=== PATIENT | male | born 1980 | race Caucasian/White ===

== ENCOUNTER 2018-09-07 11:01 | Inpatient (IN) | payer OTHER ==
[2018-09-07 11:28] VITALS: BMI 23.3
--- NOTE | 2018-09-07 13:06 | HP ---
"CIWA Score Nausea/Vomitin-Int. Nausea w/Dry Heave Muscle Tremors: 4-Moderate,w/Arms Extend Anxiety: 4-Mod. Anxious/Guarded Agitation: 1-Slight > Activity Paroxysmal Sweats: No Perspiration Orientation: 0-Oriented Tacttile Disturbances: 0-None Auditory Disturbances: 0-None Visual Disturbances: 1-Very Mild Sensitivity Headache: 0-None Present CIWA-Ar Total Score: 14 - Admission Criteria OASAS Guidelines: Admission for Medically Managed Detox: Requires at least one of the followin. CIWA greater than 12 2. Seizures within the past 24 hours 3. Delirium tremens within the past 24 hours 4. Hallucinations within the past 24 hours 5. Acute intervention needed for co occurring medical disorder 6. Acute intervention needed for co occurring psychiatric disorder 7. Severe withdrawal that cannot be handled at a lower level of care (continued vomiting, continued diarrhea, abnormal vital signs) requiring intravenous medication and/or fluids 8. 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 Denies driving . Latest use today manuela 0.138 , went to [facility] today , referred to this facility . PMHx : denies PSHx : left knee ACL , r knee meniscual tear, discectomy C4 , Laminectomy L- spine Sep 2017 , RTC right - sports injuries PSych hx : denies utox + thc cannabis : 3 /d tobacco : 1/2 ppd This report was requested by: Carolynn Espinal | Reference #: [id number] Others' Prescriptions Patient Name: Guillermo Egan Date: 1980 Address: [address] [place] [address] Sex: Male Rx Written Rx Dispensed Drug Quantity Days Supply Prescriber Name 02/23/2018 03/10/2018 clonazepam 0.5 mg tablet 60 30 Wesley Tinoco MD 02/02/2018 02/03/2018 clonazepam 0.5 mg tablet 30 30 Wesley Tinoco MD 11/18/2017 11/21/2017 clonazepam 0.5 mg tablet 30 30 Wesley Tinoco MD 10/14/2017 10/15/2017 clonazepam 0.5 mg tablet 30 30 Wesley Tinoco MD 09/16/2017 09/17/2017 oxycodone-acetaminophen 5-325 mg tab 40 6 Luis E Singh Exam Limitations: Clinical Condition - Ebola screening Have you traveled outside of the country in the last 21 days: No Have you had contact with anyone from an Ebola affected area: No Have you been sick,other than usual withdrawal symptoms: No Do you have a fever: No - Review of Systems Constitutional: See HPI EENT: reports: Other (denies dysphagia , denies vision changes) Respiratory: reports: No Symptoms reported Cardiac: reports: No Symptoms Reported GI: reports: See HPI : reports: No Symptoms Reported Musculoskeletal: reports: No Symptoms Reported Integumentary: reports: No Symptoms Reported Neuro: reports: Seizure Endocrine: reports: No Symptoms Reported Psychiatric: reports: Orientated x3, Agitated, Anxious Patient History - Patient Medical History Hx Asthma: No Hx Chronic Obstructive Pulmonary Disease (COPD): No Hx Cardiac Disorders: No Hx Hypertension: No Hx Seizures: Yes (etoh related last 07/11 pt is on klonopin) Hx Diabetes: No Hx Gastrointestinal Disorders: No Hx Genitourinary Disorders: No Hx Sexually Transmitted Disorders: No Hx Renal Disease (ESRD): No Hx Depression: Yes Hx Suicide Attempt: No Hx Schizophrenia: No - Patient Surgical History Past Surgical History: Yes Hx Orthopedic Surgery: Yes (R knee meniscus repair R acl repair) Other Surgical History: laminectomy R rotator cuff repair - PPD History Previous Implant?: Yes Documented Results: Negative w/o proof Implanted On Prior R Admission?: No - Smoking Cessation Smoking history: Current every day smoker Have you smoked in the past 12 months: Yes Aproximately how many cigarettes per day: 10 Hx Chewing Tobacco Use: No Initiated information on smoking cessation: No - Substances Abused Alcohol Route: Oral Frequency: Daily Amount used: 1 pint vodka Age of first use: 15 Date of Last Use: 09/07/18 Marijuana/Hashish Route: Smoking Frequency: Daily Amount used: 3 cigars Age of first use: 15 Date of Last Use: 09/06/18 Family Disease History - Family Disease History Family Disease History: Other: Father (lymphoma in remission) Admission Physical Exam S - Vital Signs Vital Signs: Vital Signs - 24 hr 09/07/18 11:25 Temperature 98.1 F Pulse Rate 104 H Respiratory 20 Rate Blood Pressure 135/91 - Physical General Appearance: Yes: Moderate Distress, Tremorous, Anxious HEENTM: Yes: EOMI, Normocephalic, Normal Voice, Hearing Decreased, Other ( nystagmus) Respiratory: Yes: Chest Non-Tender, Lungs Clear, Normal Breath Sounds Neck: Yes: No masses,lesions,Nodules, Trachea in good position Breast: Yes: Breast Exam Deferred Cardiology: Yes: Regular Rhythm, Regular Rate, S1, S2, Tachycardia Abdominal: Yes: Normal Bowel Sounds, Non Tender, Soft Genitourinary: Yes: Within Normal Limits Back: Yes: Surgical Scar Musculoskeletal: Yes: Gait Steady, Back pain Extremities: Yes: Normal Capillary Refill, Tremors Neurological: Yes: Fully Oriented, Alert, Motor Strength 5/5 Integumentary: Yes: Normal Color, Dry, Warm - Diagnostic (1) Alcohol intoxication Current Visit: Yes Status: Acute Qualifiers: Complication of substance-induced condition: uncomplicated Qualified Code(s ): F10.920 - Alcohol use, unspecified with intoxication, uncomplicated (2) Cannabis dependence Current Visit: Yes Status: Chronic (3) Nicotine dependence Current Visit: Yes Status: Chronic Qualifiers: Nicotine product type: cigarettes BHS Breath Alcohol Content Breath Alcohol Content: 0.138 Urine Drug Screen - Results Drug Screen Negative: No Urine Drug Screen Results: THC-Marijuana"
[2018-09-07] MEDS ORDERED: MAG HYDROX/AL HYDROX/SIMETH 30 ML UNIT-DOSE CUP PO PRN (13:12)
[2018-09-07] MEDS ORDERED: MENTHOL/PHENOL 1 EACH UD MM PRN (13:12)
[2018-09-07] MEDS ORDERED: ACETAMINOPHEN 325 MG TABLET (FP) PO PRN (13:12)
[2018-09-07] MEDS ORDERED: guaiFENesin/D-METHORPHAN HB 10 ML UNIT-DOSE CUPS PO PRN (13:12)
[2018-09-07] MEDS ORDERED: IBUPROFEN 400 MG TABLET (FP) PO PRN (13:12)
[2018-09-07] MEDS ORDERED: NICOTINE POLACRILEX 2 MG GUM BUC PRN (13:12)
[2018-09-07] MEDS ORDERED: P-EPHED 60MG/TRIPROLIDI 2.5MG TABLET PO PRN (13:12)
[2018-09-07] MEDS ORDERED: MAGNESIUM CITRATE 300 ML BOTTLE PO PRN (13:12)
[2018-09-07] MEDS ORDERED: MAGNESIUM HYDROX 2400MG/30ML ORAL SUSPENSION 30 ML CUP PO PRN (13:12)
[2018-09-07] MEDS: chlordiazePOXIDE HCL 25 MG CAPSULE PO PRN (14:57)
[2018-09-07] MEDS ORDERED: ONDANSETRON *ODT* 4 MG TABLET SL PRN (15:03)
[2018-09-07] MEDS ORDERED: ONDANSETRON 4 MG/2 ML VIAL IM PRN (15:03)
[2018-09-07] MEDS: chlordiazePOXIDE HCL 25 MG CAPSULE PO SCH ×2 (17:27→23:20)
--- NOTE | 2018-09-07 17:33 | PN ---
[facility] Progress Note Note: pt was found on the floor after an apparent seizure, pt fell and hit his head causing a deep gash/open wound to left side of forehead. After 5-10min pt was verbal answering questions. Pt AAOx3. pt denies of any GONZALEZ, blurred vision and cannot remember how or what happened prior to falling and cannot remember how he fell. Report given to Dr. Bob for evaluation.
[2018-09-07] MEDS: THIAMINE HCL 100 MG TABLET (FP) PO SCH (23:07)
[2018-09-07] MEDS: MELATONIN 5 MG TABLETS PO PRN (23:34)
[2018-09-08] MEDS: chlordiazePOXIDE HCL 25 MG CAPSULE PO PRN (01:26)
[2018-09-08] MEDS: chlordiazePOXIDE HCL 25 MG CAPSULE PO SCH ×2 (06:01→10:14)
[2018-09-08] MEDS: PRENATAL VITAMINS W/ FOLIC ACID TABLET (FP) PO SCH (10:13)
[2018-09-08 10:33] LABS: HEMATOCRIT 47.9 % (35.4-49); HEMOGLOBIN 16.5 GM/dL (11.7-16.9); MCH 36.7 pg (25.7-33.7); MCHC 34.4 g/dl (32.0-35.9); MEAN CELL VOLUME 106.8 fl (80-96); MEAN PLT VOLUME 10.3 fl (7.5-11.1); PLATELET COUNT 124 K/MM3 (134-434); RBC 4.49 M/mm3 (4.00-5.60); RDW 15.3 % (11.9-15.9); WHITE BLOOD COUNT 6.1 K/mm3 (4.0-10.0)
[2018-09-08 12:22] LABS: BLOOD UREA NITROGEN 6 mg/dL (7-18); CHLORIDE 96 mmol/L (98-107); CREATININE 0.9 mg/dL (0.55-1.3); GLUCOSE,RANDOM 106 mg/dL (74-106); POTASSIUM 3.4 mmol/L (3.5-5.1); SODIUM 137 mmol/L (136-145)
[2018-09-08 12:23] LABS: ALBUMIN 3.8 g/dl (3.4-5.0); ALK PHOS 219 U/L (45-117); ANION GAP 16 MMOL/L (8-16); BILIRUBIN,TOTAL 1.3 mg/dL (0.2-1); CALCIUM 8.9 mg/dL (8.5-10.1); CO2 25 mmol/L (21-32); SGOT/AST 643 U/L (15-37); SGPT/ALT 184 U/L (13-61); TOT PROT 7.4 g/dl (6.4-8.2)
--- NOTE | 2018-09-08 13:58 | PN ---
S CIWA - CIWA Score Nausea/Vomitin-No Nausea/No Vomiting Muscle Tremors: 4-Moderate,w/Arms Extend Anxiety: 4-Mod. Anxious/Guarded Agitation: 4-Moderately Restless Paroxysmal Sweats: 3 Orientation: 0-Oriented Tacttile Disturbances: 0-None Auditory Disturbances: 0-None Visual Disturbances: 0-None Headache: 0-None Present CIWA-Ar Total Score: 15 [facility] Progress Note (SOAP) Subjective: shakes sweats body aches anxiety Objective: 09/08/18 13:56 Vital Signs Temperature 98.9 F 09/08/18 13:55 Pulse Rate 100 H 09/08/18 13:55 Respiratory Rate 19 09/08/18 13:55 Blood Pressure 120/89 09/08/18 13:55 O2 Sat by Pulse Oximetry (%) Laboratory Tests 09/08/18 09/08/18 09/08/18 06:00 06:00 06:00 WBC 6.1 RBC 4.49 Hgb 16.5 Hct 47.9 MCV 106.8 H MCH 36.7 H MCHC 34.4 RDW 15.3 Plt Count 124 L MPV 10.3 Sodium 137 Potassium 3.4 L Chloride 96 L Carbon Dioxide 25 Anion Gap 16 BUN 6 L Creatinine 0.9 Creat Clearance w eGFR > 60 Random Glucose 106 Calcium 8.9 Total Bilirubin 1.3 H AST 643 H ALT 184 H Alkaline Phosphatase 219 H Total Protein 7.4 Albumin 3.8 RPR Titer Nonreactive labs noted potassium 3.4; replacement ordered d/c tylenol repeat ast/alt Assessment: 09/08/18 13:57 withdrawal sx noted sutures to left side of forehead after fall intact no s/s of infection. pt denies GONZALEZ, blurred vision, pain Plan: continue detox increase fluids bacitracin oint prn
[2018-09-08] MEDS ORDERED: LORazepam 1 MG TABLET PO PRN ×2 (14:20)
[2018-09-08] MEDS ORDERED: POTASSIUM CHLORIDE TABS 20 MEQ TABLET.ER (FP) PO ONE (14:30)
[2018-09-08] MEDS ORDERED: LORazepam 1 MG TABLET PO SCH (14:30)
[2018-09-08] MEDS: BACITRACIN 0.9 GM PACKET TP SCH (16:07)
[2018-09-08] MEDS: LORazepam 1 MG TABLET PO SCH ×2 (16:08→22:13)
[2018-09-08] MEDS: NICOTINE 21 MG/24 HOURS TOPICAL PATCH TD SCH (16:10)
[2018-09-08] MEDS ORDERED: chlordiazePOXIDE HCL 25 MG CAPSULE PO SCH (17:00)
[2018-09-08] MEDS: THIAMINE HCL 100 MG TABLET (FP) PO SCH (22:13)
[2018-09-08] MEDS: MELATONIN 5 MG TABLETS PO PRN (22:13)
[2018-09-09] MEDS: LORazepam 1 MG TABLET PO SCH ×4 (05:57→22:10)
[2018-09-09] MEDS: BACITRACIN 0.9 GM PACKET TP SCH (10:31)
[2018-09-09] MEDS: POTASSIUM CHLORIDE TABS 20 MEQ TABLET.ER (FP) PO SCH (10:31)
[2018-09-09] MEDS: PRENATAL VITAMINS W/ FOLIC ACID TABLET (FP) PO SCH (10:31)
[2018-09-09] MEDS: NICOTINE 21 MG/24 HOURS TOPICAL PATCH TD SCH (10:31)
[2018-09-09] MEDS ORDERED: BACLOFEN 10 MG TABLET (FP) PO ONE (10:39)
[2018-09-09 12:36] LABS: SGOT/AST 283 U/L (15-37); SGPT/ALT 123 U/L (13-61)
[2018-09-09] MEDS: BACLOFEN 10 MG TABLET (FP) PO SCH ×2 (13:34→22:11)
--- NOTE | 2018-09-09 13:47 | PN ---
[facility] CIWA - CIWA Score Nausea/Vomitin-No Nausea/No Vomiting Muscle Tremors: None Anxiety: 2 Agitation: 2 Paroxysmal Sweats: 2 Orientation: 2-Disoriented Date<2 days Tacttile Disturbances: 2-Mild Itch/Numbness/Burn Auditory Disturbances: 0-None Visual Disturbances: 0-None Headache: 0-None Present CIWA-Ar Total Score: 10 [facility] Progress Note (SOAP) Subjective: Sweating, Interrupted Sleep. Objective: PATIENT A & O X 2 (UNCERTAIN ABOUT CURRENT DAY / DATE). PATIENT OBSERVED AMBULATING ON UNIT. IN NO ACUTE DISTRESS. SUTURES IN PLACE AT SITE OF WOUND ON LEFT SIDE OF HEAD. NO ERYTHEMA, WELLING, DISCHARGE, OR SIGNS OF INFECTION NOTED AT SITE. 09/09/18 13:48 Vital Signs Temperature 97.3 F L 09/09/18 09:35 Pulse Rate 114 H 09/09/18 09:35 Respiratory Rate 18 09/09/18 09:35 Blood Pressure 130/86 09/09/18 09:35 O2 Sat by Pulse Oximetry (%) Laboratory Tests 09/08/18 09/08/18 09/08/18 06:00 06:00 06:00 WBC 6.1 RBC 4.49 Hgb 16.5 Hct 47.9 MCV 106.8 H MCH 36.7 H MCHC 34.4 RDW 15.3 Plt Count 124 L MPV 10.3 Sodium 137 Potassium 3.4 L Chloride 96 L Carbon Dioxide 25 Anion Gap 16 BUN 6 L Creatinine 0.9 Creat Clearance w eGFR > 60 Random Glucose 106 Calcium 8.9 Total Bilirubin 1.3 H AST 643 H ALT 184 H Alkaline Phosphatase 219 H Total Protein 7.4 Albumin 3.8 RPR Titer Nonreactive 09/09/18 09:29 WBC RBC Hgb Hct MCV MCH MCHC RDW Plt Count MPV Sodium Potassium Chloride Carbon Dioxide Anion Gap BUN Creatinine Creat Clearance w eGFR Random Glucose Calcium Total Bilirubin AST 283 H ALT 123 H Alkaline Phosphatase Total Protein Albumin RPR Titer LABS NOTED. SIGNIFICANT IMPROVEMENT (REDUCTION) NOTED ON REPEAT AST AND ALT DONE EARLIER THIS AM. PATIENT HAD PPD PLANTED ON ADMISSION THAT WAS FOUND TO BE POSITIVE TODAY. HOWEVER, PATIENT THEN REPORTED A HISTORY OF A POSITIVE PPD, WHICH HE DID NOT NOTE DURING ADMISSION ASSESSMENT. CXR ORDERED FOR TOMORROW AM. 09/09/18 13:50 Assessment: 09/09/18 13:48 WITHDRAWAL SYMPTOMS. HYPOKALEMIA. ELEVATED LIVER ENZYMES. HISTORY OF POSITIVE PPD. 09/09/18 13:50 Plan: WITHDRAWAL SYMPTOMS. INCREASE DAILY PO FLUID INTAKE. CXR ORDERED FOR TOMORROW AM FOR HISTORY OF POSITIVE PPD. CONTINUE K-DUR DAILY. CONTINUE TOPICAL BACITRACIN FOR WOUND ON FOREHEAD.
[2018-09-09] MEDS ORDERED: LORazepam 1 MG TABLET PO SCH (14:30)
[2018-09-09] MEDS: CYANOCOBALAMIN (VITAMIN B-12) 100 MCG TABLET PO SCH (14:44)
[2018-09-09] MEDS ORDERED: chlordiazePOXIDE 5 MG CAPSULE PO SCH (17:00)
[2018-09-09] MEDS: THIAMINE HCL 100 MG TABLET (FP) PO SCH (22:10)
[2018-09-09] MEDS: MELATONIN 5 MG TABLETS PO PRN (22:12)
[2018-09-10] MEDS: BACLOFEN 10 MG TABLET (FP) PO SCH ×3 (05:22→22:04)
[2018-09-10] MEDS: LORazepam 1 MG TABLET PO SCH ×2 (05:22→10:06)
[2018-09-10] MEDS: BACITRACIN 0.9 GM PACKET TP SCH (10:06)
[2018-09-10] MEDS: PRENATAL VITAMINS W/ FOLIC ACID TABLET (FP) PO SCH (10:06)
[2018-09-10] MEDS: POTASSIUM CHLORIDE TABS 20 MEQ TABLET.ER (FP) PO SCH (10:06)
[2018-09-10] MEDS: CYANOCOBALAMIN (VITAMIN B-12) 100 MCG TABLET PO SCH (10:06)
[2018-09-10] MEDS: NICOTINE 21 MG/24 HOURS TOPICAL PATCH TD SCH (10:07)
[2018-09-10] MEDS ORDERED: diphenhydrAMINE HCL 25 MG CAPSULE (FP) PO ONE (11:06)
--- NOTE | 2018-09-10 12:13 | PN ---
S Progress Note (SOAP) Subjective: left eyelid mild swelling mild shakes feeling much better Objective: 09/10/18 12:12 Vital Signs Temperature 97.7 F 09/10/18 09:58 Pulse Rate 86 09/10/18 09:58 Respiratory Rate 18 09/10/18 09:58 Blood Pressure 111/77 09/10/18 09:58 O2 Sat by Pulse Oximetry (%) aaox3 ambulating no acute distress Assessment: 09/10/18 12:12 mild withdrawal mild swelling to eyelid, no vision difficulty, no blurred vision Plan: continue detox increase fluids hytone cream benadryl 25mg x one will reassess eyelid swelling d/c in am
--- NOTE | 2018-09-10 15:54 | PN ---
[facility] Progress Note Note: pt left eyelid re-assessed; swelling decreased significantly. Pt states his eyelid feels so much better. pt will continue with hytone cream prn.
[2018-09-10] MEDS ORDERED: chlordiazePOXIDE HCL 10 MG CAPSULE PO SCH (17:00)
[2018-09-10 21:30] VITALS: TEMP 97.9
[2018-09-10] MEDS: THIAMINE HCL 100 MG TABLET (FP) PO SCH (22:04)
[2018-09-10] MEDS: MELATONIN 5 MG TABLETS PO PRN (22:04)
[2018-09-11] MEDS: BACLOFEN 10 MG TABLET (FP) PO SCH (06:10)
[2018-09-11] MEDS: HYDROCORTISONE 1% TOPICAL CREAM 30 GM TUBE TP PRN ×2 (06:13→08:43)
[2018-09-11] MEDS ORDERED: LORazepam 1 MG TABLET PO ONE (08:00)
[2018-09-11 08:23] VITALS: BP 105/74; PULSE 82
--- NOTE | 2018-09-11 13:55 | DS ---
[facility] Detox Discharge Summary Admission Date: 09/07/18 Discharge Date: 09/11/18 - History Present History: Alcohol Dependence Pertinent Past History: Drug induced seizures - Physical Exam Results Vital Signs: Vital Signs Temperature 97.9 F 09/11/18 08:22 Pulse Rate 82 09/11/18 08:22 Respiratory Rate 18 09/11/18 08:22 Blood Pressure 105/74 09/11/18 08:22 O2 Sat by Pulse Oximetry (%) Pertinent Admission Physical Exam Findings: Withdrawal sx Laboratory Last Values WBC 6.1 K/mm3 (4.0-10.0) 09/08/18 06:00 RBC 4.49 M/mm3 (4.00-5.60) 09/08/18 06:00 Hgb 16.5 GM/dL (11.7-16.9) 09/08/18 06:00 Hct 47.9 % (35.4-49) 09/08/18 06:00 MCV 106.8 fl (80-96) H 09/08/18 06:00 MCH 36.7 pg (25.7-33.7) H 09/08/18 06:00 MCHC 34.4 g/dl (32.0-35.9) 09/08/18 06:00 RDW 15.3 % (11.9-15.9) 09/08/18 06:00 Plt Count 124 K/MM3 (134-434) L 09/08/18 06:00 MPV 10.3 fl (7.5-11.1) 09/08/18 06:00 Sodium 137 mmol/L (136-145) 09/08/18 06:00 Potassium 3.4 mmol/L (3.5-5.1) L 09/08/18 06:00 Chloride 96 mmol/L (98-107) L 09/08/18 06:00 Carbon Dioxide 25 mmol/L (21-32) 09/08/18 06:00 Anion Gap 16 MMOL/L (8-16) 09/08/18 06:00 BUN 6 mg/dL (7-18) L 09/08/18 06:00 Creatinine 0.9 mg/dL (0.55-1.3) 09/08/18 06:00 Creat Clearance w eGFR > 60 (>60) 09/08/18 06:00 Random Glucose 106 mg/dL (74-106) 09/08/18 06:00 Calcium 8.9 mg/dL (8.5-10.1) 09/08/18 06:00 Total Bilirubin 1.3 mg/dL (0.2-1) H 09/08/18 06:00 AST 283 U/L (15-37) H 09/09/18 09:29 ALT 123 U/L (13-61) H 09/09/18 09:29 Alkaline Phosphatase 219 U/L (45-117) H 09/08/18 06:00 Total Protein 7.4 g/dl (6.4-8.2) 09/08/18 06:00 Albumin 3.8 g/dl (3.4-5.0) 09/08/18 06:00 RPR Titer Nonreactive (NONREACTIVE) 09/08/18 06:00 Labs noted - Treatment Hospital Course: Detox Protocol Followed, Detoxed Safely, Responded well, Discharged Condition Good - Medication Discharge Medications: Ambulatory Orders Clonazepam 0.5 mg PO BID PRN 09/07/18 - Diagnosis (1) Alcohol withdrawal Status: Acute Qualifiers: Complication of substance-induced condition: with unspecified complication Qualified Code(s): F10.239 - Alcohol dependence with withdrawal, unspecified (2) Seizure Status: Acute (3) Cannabis dependence Status: Chronic (4) Nicotine dependence Status: Chronic Qualifiers: Nicotine product type: cigarettes Substance use status: uncomplicated Qualified Code(s): F17.210 - Nicotine dependence, cigarettes, uncomplicated - AMA Did Patient Leave Against Medical Advice: No
== END 2018-09-11 08:49 | disposition home or self-care (01) | DRG 775 ==
LOC: YASAS 11:01 → Y6N 13:52
PROVIDERS: ADMIT Neuromusculoskeletal Medicine & OMM; ATTEND Neuromusculoskeletal Medicine & OMM
PROC: HZ2ZZZZ Detoxification Services for Substance Abuse Treatment (ICD-10-PCS; principal; 2018-09-07)
DX: F10.230 Alcohol dependence with withdrawal, uncomplicated (principal); F12.20 Cannabis dependence, uncomplicated; F17.210 Nicotine dependence, cigarettes, uncomplicated; E87.6 Hypokalemia; R94.5 Abnormal results of liver function studies; R76.11 Nonspecific reaction to tuberculin skin test without active tuberculosis; G40.909 Epilepsy, unspecified, not intractable, without status epilepticus; H02.846 Edema of left eye, unspecified eyelid; R00.0 Tachycardia, unspecified; S01.81XA Laceration without foreign body of other part of head, initial encounter; W18.30XA Fall on same level, unspecified, initial encounter; Y93.89 Activity, other specified; Y92.238 Other place in hospital as the place of occurrence of the external cause
CPT/HCPCS: 36415; 71046-TC-FY; 80053; 84450; 84460; 85027; 86593; J0475

== ENCOUNTER 2018-09-07 17:35 | Emergency (ER) | payer OTHER ==
[2018-09-07 17:49] VITALS: BMI 23.5
[2018-09-07] MEDS ORDERED: chlordiazePOXIDE HCL 25 MG CAPSULE PO STA (18:25)
--- NOTE | 2018-09-07 18:32 | PDOC ---
Attending Attestation - HPI HPI: 09/07/18 18:32 The patient is a 37 year-old male , with a past medical history of seizures ( last episode 07/11, on klonopin) and depression, who presents to the ED via EMS for seizure. Pt went to [facility] today seeking alcohol detox and was referred to [facility]. Pt was admitted at [facility]. Patient began drinking alcohol at the age of 15. The patient reports losing his job in March 2018, and has been drinking 1 pint of alcohol every day since. Patient experiences seizures when he is not consuming alcohol. He also reports tobacco use ( PPD), and occasional marijuana use. Surgical hx: Left ACL repair, RT meniscal repair, RT rotator cuff repair, Laminectomy of L spine (september 2017). - Physicial Exam PE: 09/07/18 18:32 GENERAL: Well developed, well nourished. Awake and alert. (+)Pt had an alcohol withdrawal seizure. No acute distress. HEENT: Normocephalic. PERRLA, EOMI. No conjunctival pallor. Sclera are non-icteric. Moist mucous. (+)Significant right forehead full thickness laceration. membranes. Oropharynx is clear. NECK: Supple. Full ROM. No JVD. Carotid pulses 2+ and symmetric, without bruits. No thyromegaly. No lymphadenopathy. CARDIOVASCULAR: Regular rate and rhythm. No murmurs, rubs, or gallops. Distal pulses are 2+ and symmetric. PULMONARY: No evidence of respiratory distress. Lungs clear to auscultation bilaterally. No wheezing, rales or rhonchi. ABDOMINAL: Soft. Non-tender. Non-distended. No rebound or guarding. No organomegaly. Normoactive bowel sounds. MUSCULOSKELETAL Normal range of motion at all joints. No bony deformities or tenderness. No CVA tenderness. EXTREMITIES: No cyanosis. No clubbing. No edema. No calf tenderness. No lacerations noted on extremities. SKIN: Warm and dry. Normal capillary refill. No rashes. No jaundice. NEUROLOGICAL: Conversant and able to answer all questions appropriately. Alert, awake, appropriate. No facial droop. Cranial nerves 2-12 intact. No deficits to light touch and temperature in face, upper extremities and lower extremities. No motor deficits in the in face, upper extremities and lower extremities. Normoreflexic in the upper and lower extremities. Normal speech. Toes are down-going bilaterally. PSYCHIATRIC: Cooperative. Good eye contact. Appropriate mood and affect. <Barbara Emery - Last Filed: 09/07/18 18:32> - Resident Resident Name: Asha Coronel - ED Attending Attestation I have performed the following: I have examined & evaluated the patient, The case was reviewed & discussed with the resident, I agree w/resident's findings & plan, Exceptions are as noted - Medical Decision Making 09/07/18 20:38 37 yo male who was starting etoh detox today experineced an etoh withdrawl seizure ans sustained a forehead laceration He ws BIBA from [facility] detox for ct scan head and laceration repair Pt arrived alert and conversant 09/07/18 20:40 ct scan head is NEGATIVE for any acute intracranial pathology, no hemorrhage, no skull fracture 09/07/18 22:12 laceration was cleaned and sutured plan discharged back to [facility] 09/07/18 22:15 I contacted the nurse at [facility] on [address] and Jolie accepted the pt back to their facility <Ragini Masters - Last Filed: 09/07/18 22:16> Attestations - Attestations 09/07/18 18:33 Documentation prepared by Barbara Emery, acting as manager medical affairs for Ragini Masters MD. <Barbara Emery - Last Filed: 09/07/18 18:32>
[2018-09-07] MEDS ORDERED: chlordiazePOXIDE HCL 25 MG CAPSULE ONE (19:12)
[2018-09-07] MEDS ORDERED: LIDOCAINE 1%/EPI 1:100000 (20 ML MULTI DOSE VIAL) ONE (20:45)
--- NOTE | 2018-09-07 21:35 | PDOC ---
History of Present Illness - General Chief Complaint: Seizure Stated Complaint: LACERATION Time Seen by Provider: 09/07/18 18:01 History Source: Patient Exam Limitations: No Limitations - History of Present Illness Initial Comments: 09/07/18 22:06 Pt is a 37yo M with PMH of alcohol use disorder and seizures from withdrawal BIBA from [facility] s/p fall from seizure and obtaining lac on forehead. Per pt he last drank 1pt of vodka yesterday and checked into detox today. He was given Librium. He said he was in his bed and went to go get tea then he does not remember what happened. He states this is the 6th time he has had a seizure from withdrawal. He denies neck pain, chest pain, SOB, N/V/D, rectal bleeding, changes in vision, bowel/bladder incontinence. He did bite his tongue. PMH: see hpi PSH: knee surgery Meds: Klonopin Allergies: nkda Past History - Past Medical History Allergies/Adverse Reactions: Allergies Allergy/AdvReac Type Severity Reaction Status Date / Time No Known Allergies Allergy Verified 09/07/18 17:49 Home Medications: Ambulatory Orders Clonazepam 0.5 mg PO BID PRN 09/07/18 Asthma: No Cardiac Disorders: No COPD: No Diabetes: No GI Disorders: No Disorders: No HTN: No Kidney Stones: No Seizures: Yes (etoh related last 07/11 pt is on klonopin) - Surgical History Orthopedic Surgery: Yes (R knee meniscus repair R acl repair) - Reproductive History Testicular Surgery: No - Suicide/Smoking/Psychosocial Hx Smoking History: Unknown if ever smoked Have you smoked in the past 12 months: No Number of Cigarettes Smoked Daily: 10 Information on smoking cessation initiated: No Hx Alcohol Use: No Drug/Substance Use Hx: No Hx Substance Use Treatment: Yes Review of Systems - Review of Systems Constitutional: No: Chills, Diaphoresis, Fever HEENTM: Yes: Other (tongue laceration). No: Eye Pain, Blurred Vision Respiratory: No: Cough, Shortness of Breath Cardiac (ROS): No: Chest Pain, Lightheadedness, Palpitations, Syncope ABD/GI: No: Constipated, Diarrhea, Nausea, Rectal Bleeding, Vomiting : No: Burning, Dysuria Integumentary: Yes: See HPI Neurological: Yes: See HPI, Seizure, Tremors. No: Headache, Numbness, Paresthesia, Tingling, Weakness *Physical Exam - Vital Signs Last Vital Signs Temp Pulse Resp BP Pulse Ox 98.1 F 111 H 20 130/83 99 09/07/18 17:47 09/07/18 17:47 09/07/18 17:47 09/07/18 17:47 09/07/18 17:47 - Physical Exam General Appearance: Yes: Nourished, Appropriately Dressed, Mild Distress HEENT: positive: EOMI, [place], TMs Normal, Pharynx Normal, Scleral Icterus (R), Scleral Icterus (L), Hearing Grossly Normal, Other (slight tongue laceration to L side of tongue, no active bleeding. ). negative: Pharyngeal Erythema, Nasal Congestion Neck: positive: Trachea midline, Supple. negative: Lymphadenopathy (R), Lymphadenopathy (L) Respiratory/Chest: positive: Lungs Clear, Normal Breath Sounds. negative: Crackles, Rales, Rhonchi, Wheezing Cardiovascular: positive: Regular Rhythm, S1, S2. negative: Edema, JVD, Murmur Vascular Pulses: Carotid (R): 2+, Carotid (L): 2+, Dorsalis-Pedis (R): 2+, Doralis-Pedis (L): 2+ Gastrointestinal/Abdominal: positive: Normal Bowel Sounds, Soft. negative: Distended, Guarding, Rebound, Tenderness, Hernia Extremity: positive: Normal Capillary Refill, Pelvis Stable. 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 intact, Fully Oriented, Normal Mood/Affect , Normal Response, Motor Strength 5/5, Other (tremulous, tongue fasciculations) Moderate Sedation - Procedure Monitoring Vital Signs: Procedure Monitoring Vital Signs Temperature 98.1 F 09/07/18 17:47 Pulse Rate 111 H 09/07/18 17:47 Respiratory Rate 20 09/07/18 17:47 Blood Pressure 130/83 09/07/18 17:47 O2 Sat by Pulse Oximetry (%) 99 09/07/18 17:47 Procedures - Laceration/Wound Repair Left Anterior Frontal Wound Length: 2.6 to 5.0 cm Wound Explored: clean, no foreign body present Wound's Depth, Shape: superficial, into muscle, linear Irrigated w/ Saline: Yes Anesthesia: 1% Lidocaine w/ Epi Amount of Anesthetic (ccs): 7 Wound Repaired With: Sutures Suture Size/Type: 5:0 Number of Sutures: 15 ED Treatment Course - RADIOLOGY Radiology Studies Ordered: Category Date Time Status CERVICAL SPINE CT W/O CONTR [CT] Stat CT Scan 09/07/18 18:27 Completed - Medications Given in the ED: ED Medications Discontinued Medications Generic Name Dose Route Start Last Admin Trade Name Farhat PRN Reason Stop Dose Admin Chlordiazepoxide HCl 50 mg 09/07/18 18:25 09/07/18 19:15 Librium - PO 09/07/18 18:26 50 mg ONCE STA Administration Medical Decision Making - Medical Decision Making 09/07/18 22:12 Pt is a 37yo M with PMH of alcohol use disorder and seizures from withdrawal BIBA from [facility] s/p fall from seizure and obtaining lac on forehead. Vitals: tachycardia at 111 PE: laceration to forehead, no vertebral tenderness, minimal tongue laceration CT head and c-spine Librium 50 given Will repair laceration. Pt is ambulatory, lac repaired with 15 5-0 stitches. Given wound care precautions. Pt is otherwise stable and can be dc back to [facility]. *DC/Admit/Observation/Transfer Diagnosis at time of Disposition: Laceration, Seizure Alcohol withdrawal Qualifiers: Complication of substance-induced condition: with unspecified complication Qualified Code(s): F10.239 - Alcohol dependence with withdrawal, unspecified - Discharge Dispostion Disposition: HOME Condition at time of disposition: Improved Decision to Admit order: No - Referrals - Patient Instructions Printed Discharge Instructions: DI for Laceration Repair -- Simple Additional Instructions: You were seen in the emergency room today after you had a seizure and fell. You had a laceration to your forehead. It was repaired with 15 stitches. come back in 2 days for wound check. You will have pain and notice swelling tomorrow, this is normal. You can take Tylenol or ibuprofen for pain as needed. Keep the area clean and dry. Use only water to clean and pat dry. Keep the wound covered from the sun to prevent scarring. You should come back to the emergency room in 5 days for suture removal. Come back to the emergency room if you have another seizure, the wound looks infected, there is more swelling, the skin looks red, you develop fever or if any new concerning symptom develops. Thank you - Post Discharge Activity
[2018-09-07 22:17] VITALS: BP 127/82; PULSE 92; TEMP 98
== END 2018-09-07 23:04 | disposition home or self-care (01) ==
LOC: JER 17:35
PROC: 0JQ10ZZ Repair Face Subcutaneous Tissue and Fascia, Open Approach (ICD-10-PCS; principal; 2018-09-07)
DX: G40.509 Epileptic seizures related to external causes, not intractable, without status epilepticus (principal); S01.81XA Laceration without foreign body of other part of head, initial encounter; W18.39XA Other fall on same level, initial encounter; Y93.89 Activity, other specified; Y92.238 Other place in hospital as the place of occurrence of the external cause; Y99.8 Other external cause status; F10.230 Alcohol dependence with withdrawal, uncomplicated; F12.10 Cannabis abuse, uncomplicated; F17.210 Nicotine dependence, cigarettes, uncomplicated; F32.9 Major depressive disorder, single episode, unspecified
CPT/HCPCS: 12013; 70450-TC; 72125-TC; 99284-25

== ENCOUNTER 2019-05-21 12:04 | Inpatient (IN) | payer OTHER ==
[2019-05-21 16:34] VITALS: BP 149/97; PULSE 116; TEMP 98.4; BMI 26.6
--- NOTE | 2019-05-21 17:15 | HP ---
CIWA Score Nausea/Vomitin Muscle Tremors: 3 Anxiety: 3 Agitation: 3 Paroxysmal Sweats: 1-Minimal Palms Moist Orientation: 0-Oriented Tacttile Disturbances: 1-Very Mild Itch/Numbness Auditory Disturbances: 0-None Visual Disturbances: 0-None Headache: 2-Mild CIWA-Ar Total Score: 15 - Admission Criteria OASAS Guidelines: Admission for Medically Managed Detox: Requires at least one of the followin. CIWA greater than 12 2. Seizures within the past 24 hours 3. Delirium tremens within the past 24 hours 4. Hallucinations within the past 24 hours 5. Acute intervention needed for co occurring medical disorder 6. Acute intervention needed for co occurring psychiatric disorder 7. Severe withdrawal that cannot be handled at a lower level of care (continued vomiting, continued diarrhea, abnormal vital signs) requiring intravenous medication and/or fluids 8. Admission ROS [facility] - HPI Chief Complaint: i am here to stop drinking alcohol Allergies/Adverse Reactions: Allergies Allergy/AdvReac Type Severity Reaction Status Date / Time No Known Allergies Allergy Verified 05/21/19 16:28 History of Present Illness: this 38 years old male patient with alcohol dependence,seeking detox, withdrawal symptom, alcohol related seizure last 04/11 syncope hypertension no medication also using marijuana longest sobriety 8 months plan for outpatient after detox elevated liver eyzymes Exam Limitations: No Limitations - Ebola screening Have you traveled outside of the country in the last 21 days: No (N) Have you had contact with anyone from an Ebola affected area: No Do you have a fever: No - Review of Systems Constitutional: Chills, Loss of Appetite, Malaise, Night Sweats, Changes in sleep, Weakness EENT: reports: No Symptoms Reported Respiratory: reports: No Symptoms reported Cardiac: reports: No Symptoms Reported GI: reports: Nausea, Abdominal cramping Musculoskeletal: reports: Back Pain, Muscle Pain Integumentary: reports: Dryness Neuro: reports: Headache, Seizure, Tremors Endocrine: reports: No Symptoms Reported Hematology: reports: No Symptoms Reported Psychiatric: reports: No Sypmtoms Reported, Judgement Intact, Mood/Affect Appropiate, Orientated x3, other Other Systems: Reviewed and Negative Patient History - Patient Medical History Hx Asthma: No Hx Chronic Obstructive Pulmonary Disease (COPD): No Hx Cardiac Disorders: No Hx Hypertension: No Hx Seizures: Yes (alcohol related seizure,last 04/11) Hx Dementia: No Hx Diabetes: No Hx Gastrointestinal Disorders: No Hx Genitourinary Disorders: No Hx Sexually Transmitted Disorders: No Hx Renal Disease (ESRD): No Hx Thyroid Disease: No Hx Human Immunodeficiency Virus (HIV): No (last 12/10 ngative) Hx Hepatitis C: No Hx Depression: Yes (no med) Hx Suicide Attempt: No Hx Bipolar Disorder: No Hx Schizophrenia: No Other Medical History: no suicidal,no homicidal - Patient Surgical History Past Surgical History: Yes Hx Orthopedic Surgery: Yes (R knee meniscus repair R acl repair at age 15) Other Surgical History: laminectomy 10/12,R rotator cuff arthroscopic in 2007 - PPD History Date: 09/10/18 Results: chestxray neg PPD to be Administered?: No - Smoking Cessation Smoking history: Unknown if ever smoked Have you smoked in the past 12 months: No Aproximately how many cigarettes per day: 10 Hx Chewing Tobacco Use: No Initiated information on smoking cessation: Yes 'Breaking Loose' booklet given: 05/21/19 - Substance & Tx. History Hx Alcohol Use: Yes Hx Substance Use: Yes Substance Use Type: Alcohol, Marijuana Hx Substance Use Treatment: Yes ([facility] ) - Substances abused Alcohol Substance route: Oral Frequency: Daily Amount used: 1 pint of vodka Age of first use: 17 Date of last use: 05/20/19 Marijuana/Hashish Substance route: Smoking Frequency: 1-2 times per week Amount used: 20$ Age of first use: 17 Date of last use: 05/20/19 Admission Physical Exam B[facility] - Vital Signs Vital Signs: Vital Signs - 24 hr 05/21/19 16:28 Temperature 98.4 F Pulse Rate 116 H Respiratory 16 Rate Blood Pressure 149/97 - Physical General Appearance: Yes: Moderate Distress, Tremorous, Irritable, Sweating HEENTM: Yes: Normal ENT Inspection, DAYTON, Pharynx Normal Respiratory: Yes: Lungs Clear, Normal Breath Sounds, No Respiratory Distress Neck: Yes: Within Normal Limits, Supple, Trachea in good position Breast: Yes: Within Normal Limits Cardiology: Yes: Within Normal Limits, Regular Rhythm, Regular Rate, S1, S2 Abdominal: Yes: Within Normal Limits, Normal Bowel Sounds, Non Tender, Flat, Soft Genitourinary: Yes: Within Normal Limits Back: Yes: Muscle Spasm, Surgical Scar Musculoskeletal: Yes: Back pain, Muscle Pain Extremities: Yes: Tremors Neurological: Yes: furniture associate II-XII NML intact, Fully Oriented, Alert, Motor Strength 5/5 Integumentary: Yes: Dry Lymphatic: Yes: Within Normal Limits - Diagnostic (1) Alcohol dependence with intoxication, uncomplicated Current Visit: Yes Status: Acute (2) History of positive PPD Current Visit: No Status: Acute (3) Seizure Current Visit: No Status: Acute (4) Cannabis dependence Current Visit: No Status: Chronic (5) Nicotine dependence Current Visit: No Status: Chronic Qualifiers: Nicotine product type: cigarettes Substance use status: uncomplicated Qualified Code(s): F17.210 - Nicotine dependence, cigarettes, uncomplicated Cleared for Admission [facility] - Detox or Rehab [facility] Level of Care: Medically Managed (ativan regimen due to evevated liver enzyme on last admission) Breathalyzer - Breathalyzer Breathalyzer: 0.098 Urine Drug Screen - Test Device Lot number: [id number] Expiration date: 01/21/21 - Control Is test valid?: Yes - Results Drug screen NEGATIVE: No Urine drug screen results: THC-Marijuana Inpatient Rehab Admission - Rehab Decision to Admit Inpatient rehab admission?: No
[2019-05-21] MEDS ORDERED: MENTHOL/PHENOL 1 EACH UD MM PRN (17:29)
[2019-05-21] MEDS ORDERED: NICOTINE POLACRILEX 2 MG GUM BUC PRN (17:29)
[2019-05-21] MEDS ORDERED: MAGNESIUM HYDROX 2400MG/30ML ORAL SUSPENSION 30 ML CUP PO PRN (17:29)
[2019-05-21] MEDS ORDERED: LORazepam 1 MG TABLET PO PRN (17:29)
[2019-05-21] MEDS ORDERED: MAGNESIUM CITRATE 300 ML BOTTLE PO PRN (17:29)
[2019-05-21] MEDS ORDERED: MELATONIN 5 MG TABLETS PO PRN (17:29)
[2019-05-21] MEDS ORDERED: ACETAMINOPHEN 325 MG TABLET (FP) PO PRN ×2 (17:29)
[2019-05-21] MEDS ORDERED: MAG HYDROX/AL HYDROX/SIMETH 30 ML UNIT-DOSE CUP PO PRN (17:29)
[2019-05-21] MEDS ORDERED: METHOCARBAMOL 500 MG TABLET PO PRN (17:29)
[2019-05-21] MEDS ORDERED: IBUPROFEN 400 MG TABLET (FP) PO PRN (17:29)
[2019-05-21] MEDS ORDERED: BISMUTH SUBSALICYLATE 524 MG/30 ML UD PO PRN (17:29)
[2019-05-21] MEDS ORDERED: hydrOXYzine PAMOATE 25 MG CAPSULE (FP) PO PRN (17:29)
[2019-05-21] MEDS ORDERED: NICOTINE 21 MG/24 HOURS TOPICAL PATCH TD SCH (18:00)
[2019-05-21] MEDS ORDERED: LORazepam 2 MG/ML SDV VIAL ONE (18:43)
--- NOTE | 2019-05-21 19:00 | PN ---
[facility] Progress Note Note: responded to nursing alert patient found to have seizure in the security's office at 18.10 seizure lasted 3 mins patient was on the floor oxygen by nasal canula 4 lit/min apply immediately alert, ativan 2 mgs im given bp 189/96,p110,r14,bgm 138 alert swelling over the right side,neck no pain or tenderness lung no wheezing tachycardia movement all extremity impression seizure alcohol dependence with withdrawal r/o head injury treatment to er at [facility] for evaluation and treatment ,endorsed to DR Mercedes transported by [facility] initiate fall protocol 1 seizure precaution
[2019-05-21] MEDS ORDERED: THIAMINE HCL 100 MG TABLET (FP) PO SCH (22:00)
[2019-05-21] MEDS ORDERED: LORazepam 2 MG TABLET PO SCH (23:00)
--- NOTE | 2019-05-22 07:56 | PN ---
[facility] Progress Note Note: patient was admitted at [facility] on 05/21/19
[2019-05-22] MEDS ORDERED: PRENATAL VITAMINS W/ FOLIC ACID TABLET (FP) PO SCH (10:00)
[2019-05-23] MEDS ORDERED: LORazepam 1 MG TABLET PO SCH (05:00)
[2019-05-24] MEDS ORDERED: LORazepam 0.5 MG TABLET PO PRN
[2019-05-24] MEDS ORDERED: LORazepam 0.5 MG TABLET PO SCH (05:00)
[2019-05-25] MEDS ORDERED: LORazepam 0.5 MG TABLET PO ONE (05:00)
== END 2019-05-21 23:55 | disposition short-term general hospital (02) | DRG 775 ==
LOC: YASAS 12:04 → Y3N 17:56
PROVIDERS: ADMIT Surgery; ATTEND Surgery
PROC: HZ2ZZZZ Detoxification Services for Substance Abuse Treatment (ICD-10-PCS; principal; 2019-05-21)
DX: F10.230 Alcohol dependence with withdrawal, uncomplicated (principal); F12.20 Cannabis dependence, uncomplicated; F17.210 Nicotine dependence, cigarettes, uncomplicated; R00.0 Tachycardia, unspecified; R76.11 Nonspecific reaction to tuberculin skin test without active tuberculosis; G40.89 Other seizures; S09.90XA Unspecified injury of head, initial encounter; X58.XXXA Exposure to other specified factors, initial encounter; Y93.89 Activity, other specified; Y92.238 Other place in hospital as the place of occurrence of the external cause
CPT/HCPCS: 82962

== ENCOUNTER 2019-05-21 18:49 | Inpatient (IN) | payer OTHER ==
--- NOTE | 2019-05-21 19:16 | PDOC ---
Attending Attestation - Resident Resident Name: MohsenZbigniew - ED Attending Attestation I have performed the following: I have examined & evaluated the patient, The case was reviewed & discussed with the resident, I agree w/resident's findings & plan, Exceptions are as noted - HPI HPI: 05/21/19 19:52 Mr. Egan is a 38 yo M who presents to the ER via EMS s/p seizure Pt has a history of alcohol abuse, drinks approximately 1 pint of alcohol daily Last drink was last night He went to [facility] this morning at 8 am He was assessed and plan was to be admitted He did not end up going to a bed but rather waited in the waiting room He noted that he began to feel "Warm" and while in the security office He was then noted to have a seizure while in the security office He can not give any details about this event Does think he struck his head Per [facility] staff, seizure lasted 3 minutes and he was given Ativan 2mg IM Pt reports that this has previously happened to him in he setting of stopping alcohol (he has no history of epilepsy) - Physicial Exam PE: 05/21/19 20:41 GENERAL: The patient is in no acute distress. HEAD: Right parietal hematoma noted EYES: PERRLA, EOMI, sclera anicteric, conjunctiva clear. ENT:Tongue fasciculation, left tongue bitten/bruised otherwise Moist mucous membranes. NECK: Normal range of motion, supple LUNGS: Breath sounds equal, clear to auscultation bilaterally. No wheezes, and no crackles. HEART: Regular rhythm, tachycardiac ABDOMEN: Soft, nontender, normoactive bowel sounds. EXTREMITIES: Normal range of motion, no edema. NEUROLOGICAL: Cranial nerves II through XII grossly intact. Normal speech. No focal neurological deficits. MUSCULOSKELETAL: no midline c spine tenderness to palpation, no lumbar spine tenderness to palpation, pelvis stable SKIN: Warm, Dry, normal turgor, no rashes or lesions noted. 05/21/19 20:45 - Medical Decision Making 05/21/19 20:43 38 yo M s/p alcohol withdrawal seizure Pt has previously had alcohol withdrawal seizures (has not had any alcohol today NOR benzo prior to seizure) Laboratory Tests 05/21/19 05/21/19 05/21/19 20:00 20:00 20:00 WBC 8.0 Hgb 14.4 Hct 42.6 Plt Count 157 D BUN 6.4 L Creatinine 1.0 Alcohol, Quantitative 48.5 H 05/21/19 20:44 05/21/19 20:45 Valium 5 given Pt remains slightly tachycardiac but is resting comfortably Less tremulous Will send to CT 05/23/19 22:[address] - no ICH C spine CT- no fracture Will admit given pt recent seizure Clinical Impression: Alcohol withdrawal seizure, initial presentation
[2019-05-21] MEDS ORDERED: diazePAM 5 MG TABLET PO ONE (19:27)
--- NOTE | 2019-05-21 19:36 | PDOC ---
History of Present Illness - General Chief Complaint: Seizure Stated Complaint: SEIZURE Time Seen by Provider: 05/21/19 19:07 History Source: Patient, Alf Records Exam Limitations: No Limitations - History of Present Illness Initial Comments: 05/21/19 19:31 Guillermo Egan is a 38M with H alcohol use disorder complicated by seizures presenting with alcohol withdrawal and seizure after cessation of alcohol use last night. Patient reports drinking about a pint of vodka daily. Last night had a pint of vodka and was smoking some marijuana, but decided to quit drinking today. Arrived at [facility] for detox at 8AM feeling normal, and was about to go into detox when he had a seizure at around 6PM. Last thing he remembers was standing with his belongings and next thing he knows he is being held by security. Per EMS report lasted ~3 minutes. Likely hit his head during seizure, has some pain and a bump to the back of his head, also bit his left tongue, not bleeding. Denies bowel/bladder incontinence. Currently feels lightheaded and with a mild headache, some tremors. Does not endorse A/V hallucinations, chest pain, SOB, abd pain, changes to vision/hearing , suicidal or homicidal ideation. Denies prior history of seizure disorder or any other medical conditions. Has had one episode of alcohol withdrawal seizure in the past with a similar presentation as today, occurring within 1 day of cessation. Past History - Past Medical History Allergies/Adverse Reactions: Allergies Allergy/AdvReac Type Severity Reaction Status Date / Time No Known Allergies Allergy Verified 05/21/19 16:28 Home Medications: Ambulatory Orders NK [No Known Home Medication] 05/21/19 Asthma: No Cardiac Disorders: No COPD: No Dementia: No Diabetes: No GI Disorders: No Disorders: No HTN: No Kidney Stones: No Seizures: Yes Thyroid Disease: No - Surgical History Abdominal Surgery: No Appendectomy: No Cardiac Surgery: No Cholecystectomy: No Lung Surgery: No Neurologic Surgery: No Orthopedic Surgery: Yes (R knee meniscus repair R acl repair at age 15) - Reproductive History Testicular Surgery: No - Psycho Social/Smoking Cessation Hx Smoking History: Current every day smoker Have you smoked in the past 12 months: Yes Number of Cigarettes Smoked Daily: 10 Information on smoking cessation initiated: No 'Breaking Loose' booklet given: 05/21/19 Hx Alcohol Use: Yes Drug/Substance Use Hx: No Substance Use Type: Alcohol, Marijuana Hx Substance Use Treatment: No Review of Systems - Review of Systems Able to Perform ROS?: Yes Constitutional: No: Chills, Fever, Weakness HEENTM: No: Blurred Vision, Tinnitus, Hearing Loss Respiratory: No: Cough, Shortness of Breath, Wheezing Cardiac (ROS): Yes: Lightheadedness. No: Chest Pain, Irregular Heart Rate, Palpitations, Syncope ABD/GI: No: Constipated, Diarrhea, Nausea, Vomiting : No: Burning, Dysuria, Discharge, Frequency, Flank Pain, Hematuria, Incontinence Musculoskeletal: No: Symptoms Reported Integumentary: Yes: Lumps (back of head) Neurological: Yes: Headache, Seizure, Tremors. No: Numbness Endocrine: No: Symptoms Reported Hematologic/Lymphatic: No: Symptoms Reported All Other Systems: Reviewed and Negative *Physical Exam - Vital Signs Last Vital Signs Temp Pulse Resp BP Pulse Ox 99.2 F 106 H 18 140/102 H 96 05/21/19 19:22 05/21/19 19:22 05/21/19 19:22 05/21/19 19:22 05/21/19 19:22 - Physical Exam General Appearance: Yes: Nourished, Appropriately Dressed. No: Apparent Distress HEENT: positive: EOMI, DAYTON, Normal Voice, Symmetrical, Pharynx Normal, Other ( tenderness to palpation back of head with slight lump, no gross bleeding or evidence of skull fracture). negative: Scleral Icterus (R), Scleral Icterus (L) Neck: positive: Normal Thyroid, Supple. negative: Tender, Lymphadenopathy (R), Lymphadenopathy (L) Respiratory/Chest: positive: Lungs Clear, Normal Breath Sounds. negative: Chest Tender, Respiratory Distress, Labored Respiration, Crackles, Rales, Rhonchi Cardiovascular: positive: Regular Rhythm, Regular Rate. negative: Edema Gastrointestinal/Abdominal: positive: Normal Bowel Sounds, Flat, Soft. negative : Tender, Organomegaly, Distended, Guarding, Rebound Musculoskeletal: positive: Normal Inspection Extremity: positive: Normal Capillary Refill, Normal Inspection, Normal Range of Motion. negative: Tender, Coldness, Cyanosis Integumentary: positive: Normal Color, Dry, Warm Neurologic: positive: compliance director II-XII NML intact, Fully Oriented, Alert, Normal Mood/ Affect, Normal Response, Motor Strength 5/5, Other (CIWA Score 7 for tremors, mild GONZALEZ, mild anxiety). negative: Numbness, Sensory Deficit, Confused, Disoriented ED Treatment Course - LABORATORY CBC & Chemistry Diagram: 05/21/19 20:00 05/21/19 20:00 Medical Decision Making - Medical Decision Making 05/21/19 19:31 Guillermo Egan is a 38M with PMH alcohol use disorder complicated by seizures presenting with alcohol withdrawal and seizure after cessation of alcohol use last night. Patient has no prior history of seizure disorder and his history of withdrawal seizures. Denies other drug use outside of marijuana and alcohol. Presentation is consistent with withdrawal seizures. DDx includes infectious etiology, less likely given no fever or other sx, vs electrolyte imbalance. CIWA 7 for tremors, GONZALEZ, anxiety. Will evaluate via: CMP CBC BAL Obtaining CT head and cspine for fall after seizure to evaluate for neuro etiology vs head trauma. Starting on 5mg IV Valium for seizure ppx dosed q4-6hr. Will keep on monitor and perform routine evaluations to ensure withdrawal sx under control on Valium. Starting 1L NS for tachycardia and possible dehydration. Meets criteria for medically managed detox due to having a seizure within the last 24 hours. 05/21/19 20:46 Labs WNL, BAL 48. Patient at CT at this time pending head/neck scans. 05/21/19 22:18 CT head results show no evidence of depressed skull fracture or ICH, posterior fossa arachnoid cyst noted. ECG shows NSR. Discussed admission with camila Barraza to be admitted for detox under Dr. Maxwell. Requests banana bag to be given, ordered. 05/21/19 22:33 CT c-spine shows no acute fracture, slight hyperkhyphotic curvature with 1mm interspinous widening at C5-C6, degnerative disc findings C5-C7. 05/21/19 00:[address] Hurley for admission to Med-Surg for detox, likely transfer to [facility] in the morning. Discharge - Discharge Information Problems reviewed: Yes Clinical Impression/Diagnosis: Tremor due to drug withdrawal Alcohol withdrawal Qualifiers: Complication of substance-induced condition: uncomplicated Qualified Code(s): F10.230 - Alcohol dependence with withdrawal, uncomplicated Tongue injury Qualifiers: Encounter type: initial encounter Qualified Code(s): S09.93XA - Unspecified injury of face, initial encounter Fall Qualifiers: Encounter type: initial encounter Qualified Code(s): W19.XXXA - Unspecified fall, initial encounter Seizure due to alcohol withdrawal Qualifiers: Complication of substance-induced condition: uncomplicated Qualified Code(s): F10.230 - Alcohol dependence with withdrawal, uncomplicated Condition: Stable - Admission Yes - Follow up/Referral - Patient Discharge Instructions - Post Discharge Activity
[2019-05-21] MEDS ORDERED: diazePAM CARPU-JECT 10 MG/2 ML DISP.SYRIN IVPUSH ONE (19:39)
[2019-05-21] MEDS ORDERED: SODIUM CHLORIDE 0.9% 500 ML INFUS.BAG IV ONE (19:48)
[2019-05-21 20:06] LABS: BASO % 0.4 % (0-2.0); EOS % 0.8 % (0-4.5); HEMATOCRIT 42.6 % (35.4-49); HEMOGLOBIN 14.4 GM/dL (11.7-16.9); LYMPH % 14.1 % (8-40); MCH 32.4 pg (25.7-33.7); MCHC 33.8 g/dl (32.0-35.9); MEAN CELL VOLUME 95.8 fl (80-96); MEAN PLT VOLUME 8.7 fl (7.5-11.1); MONO % 8.7 % (3.8-10.2); PLATELET COUNT 157 K/MM3 (134-434); RBC 4.45 M/mm3 (4.00-5.60); RDW 14.6 % (11.9-15.9)
[2019-05-21 20:40] LABS: ALBUMIN 3.6 g/dl (3.4-5.0); BILIRUBIN,TOTAL 0.3 mg/dL (0.2-1); BLOOD UREA NITROGEN 6.4 mg/dL (7-18); CALCIUM 8.3 mg/dL (8.5-10.1); TOT PROT 6.8 g/dl (6.4-8.2)
[2019-05-21 20:41] LABS: POTASSIUM 4.1 mmol/L (3.5-5.1)
--- NOTE | 2019-05-21 22:10 | PN ---
Teaching Attending Note Name of Resident: Deann Hurley ATTENDING PHYSICIAN STATEMENT I saw and evaluated the patient. I reviewed the resident's note and discussed the case with the resident. I agree with the resident's findings and plan as documented. SUBJECTIVE: Patient is a 38 year old man with PMH of Alcohol abuse complicated by seizures and Tobacco use presenting with alcohol withdrawal and seizure after cessation of alcohol use last night. Patient reports drinking about a pint of vodka daily. Last night had a pint of vodka and was smoking some marijuana, but decided to quit drinking today. Arrived at [facility] for detox at 8AM feeling normal, and was about to go into detox when he had a seizure at around 6PM. Last thing he remembers was standing with his belongings and next thing he knows he is being held by security. Per EMS report seizure lasted about3 minutes. Likely hit his head during seizure, has some pain and a bump to the back of his head, also bit his left tongue, not bleeding. Denies bowel/bladder incontinence. Currently feels lightheaded and with a mild headache, some tremors. Does not have auditory or visual hallucinations, chest pain, SOB, abdominal pain, changes to vision/hearing, suicidal or homicidal ideation. Denies prior history of seizure disorder or any other medical conditions. Has had one episode of alcohol withdrawal seizure in the past with a similar presentation as today, occurring within 1 day of cessation. OBJECTIVE: Alert Vital Signs Period Temp Pulse Resp BP Sys/Martins Pulse Ox Last 24 Hr 99.1 F-99.2 F 106-113 18-19 140-151/91-102 96-96 HEENT: No Jaundice, eye redness or discharge, PERRLA, EOMI. Normocephalic, atraumatic. Tongue lacerations. External ears are normal and hearing is grossly intact. No nasal discharge. Neck: Supple, nontender. No palpable adenopathy or thyromegaly. No JVD Chest: Good effort. Clear to auscultation and percussion. Heart: Regular. No S3, rub or murmur Abdomen: Not distended, soft, nontender and no HSM. No rebound or guarding. Normal bowel sounds. Ext: Peripheral pulses intact. No leg edema. Skin: Warm and dry. No petechiae, rash or ecchymosis. Neuro: Alert. Oriented x3. CN 2-12 grossly intact. Sensation grossly intact in all four extremities and DTR are symmetric. Psych: Appropriate mood and affect. Good insight. Home Medications Medication Instructions Recorded NK [No Known Home Medication] 05/21/19 Abnormal Lab Results 05/21/19 05/21/19 20:00 20:00 BUN 6.4 L Calcium 8.3 L AST 54 H Alcohol, Quantitative 48.5 H ASSESSMENT AND PLAN: 1. Alcohol withdrawal seizure - Got diazepam 5 mg IV and % mg PO in the ER as well as IL IV NS. No acute abnormality on head and C-spine CT - posterior fossa arachnoid cyst noted on head CT. EKG shows NSR with no significant ST-T wave changes. Will give banana bag and admit to telemetry. Implement [facility] alcohol withdrawal protocol and do neurochecks. Implement seizure, fall and aspiration precautions. Treat with thiamine and folic acid and monitor electrolytes (Ca,Mg,K,P). Counseled patient about abstaining from alcohol. Will consult placement specialist and refer to alcohol detox upon discharge. 2. Tobacco Use Counseled on risks associated with tobacco use. We will provide patient all the necessary assistance to facilitate smoking cessation and prescribe Nicotine patch. 3. DVT prophylaxis - Lovenox 40 mg SQ q 24 hours. 4. Advance directives - Full code
--- NOTE | 2019-05-22 00:04 | HP ---
CHIEF COMPLAINT: seizure PCP: none HISTORY OF PRESENT ILLNESS: Patient is a 35 y/o male with a history of alcohol abuse and seizures who presents from [facility] for a seizure. patient drinks about a pint of alcohol a day and the last time he drank was yesterday. He has had 5 withdrawl seizures in the past and he has been to detox twice in the past. Patient has never been intubated. Patient was at [facility] about to be admitted when he had a seizure that lasted 3 minutes. The seizure stopped with 2 mg of Ativan. Patient does not remember the event. Patient reports it is hard for him to stop drinking because then he starts to withdraw. He is interested in cutting down on his drinking. reports he has a headache from falling and he bit his tounge. Denies trouble with the light, dizziness, chest pain, nausea, vomiting or tingling. In the ED patient had a CIWA of 7. ER course was notable for: (1) head CT: no fracture (2) (3) Recent Travel: denies PAST MEDICAL HISTORY: alcohol abuse, withdrawl seizures PAST SURGICAL HISTORY: denies Social History: Smokin pack a day Alcohol: 1 pint a day Drugs: denies Allergies No Known Allergies Allergy (Verified 05/21/19 16:28) HOME MEDICATIONS: Home Medications Medication Instructions Recorded NK [No Known Home Medication] 05/21/19 REVIEW OF SYSTEMS CONSTITUTIONAL: headache Absent: fever, chills, diaphoresis, generalized weakness, malaise, loss of appetite, weight change HEENT: Absent: rhinorrhea, nasal congestion, throat pain, throat swelling, difficulty swallowing, mouth swelling, ear pain, eye pain, visual changes CARDIOVASCULAR: Absent: chest pain, syncope, palpitations, irregular heart rate, lightheadedness , peripheral edema RESPIRATORY: Absent: cough, shortness of breath, dyspnea with exertion, orthopnea, wheezing, stridor, hemoptysis GASTROINTESTINAL: Absent: abdominal pain, abdominal distension, nausea, vomiting, diarrhea, constipation, melena, hematochezia GENITOURINARY: Absent: dysuria, frequency, urgency, hesitancy, hematuria, flank pain, genital pain MUSCULOSKELETAL: Absent: myalgia, arthralgia, joint swelling, back pain, neck pain SKIN: Absent: rash, itching, pallor HEMATOLOGIC/IMMUNOLOGIC: Absent: easy bleeding, easy bruising, lymphadenopathy, frequent infections ENDOCRINE: Absent: unexplained weight gain, unexplained weight loss, heat intolerance, cold intolerance NEUROLOGIC: Absent: headache, focal weakness or paresthesias, dizziness, unsteady gait, seizure, mental status changes, bladder or bowel incontinence PSYCHIATRIC: Absent: anxiety, depression, suicidal or homicidal ideation, hallucinations. PHYSICAL EXAMINATION Vital Signs - 24 hr 05/21/19 05/21/19 05/21/19 18:56 19:22 22:44 Temperature 99.1 F 99.2 F Pulse Rate 113 H Pulse Rate [ 106 H Left] Respiratory 19 18 Rate Blood Pressure 151/91 Blood Pressure 140/102 H [Left Arm] O2 Sat by Pulse 96 96 95 Oximetry (%) GENERAL: Awake, alert, and fully oriented, in no acute distress. HEAD: Normal with no signs of trauma. EYES: Pupils equal, round and reactive to light, extraocular movements intact, EARS, NOSE, THROAT: small cut on left side of tounge, Moist mucous membranes. LUNGS: Breath sounds equal, clear to auscultation bilaterally. No wheezes, and no crackles. No accessory muscle use. HEART: Regular rate and rhythm, normal S1 and S2 without murmur, rub or gallop. ABDOMEN: Soft, nontender, not distended, normoactive bowel sounds, no guarding, no rebound, no masses. MUSCULOSKELETAL: Normal range of motion at all joints. LOWER EXTREMITIES: 2+ pulses, warm, well-perfused. No calf tenderness. No peripheral edema. NEUROLOGICAL: sensation intact diffusely PSYCHIATRIC: Cooperative. Good eye contact. Appropriate mood and affect. SKIN: Warm, dry, normal turgor, no rashes or lesions noted, normal capillary refill. CBC, BMP 05/21/19 20:00 05/21/19 20:00 ASSESSMENT/PLAN: Patient is a 35 y/o male with a history of alcohol abuse and seizures who presents from [facility] for a seizure. #Seizure - 2/2 to alcohol withdrawl - patient given 10 of valium in the ED - Librium protocol started - seizure precautions, patient has pertinent hx of seizures from withdrawl - banana bag given, thiamine and folate started daily - alcohol level on admission: 48 #DVT PPX - Lovenox 40 sq daily FEN - regular diet - monitor electrolytes Dispo: patient can likely finish detox at [facility] Visit type - Emergency Visit Emergency Visit: Yes ED Registration Date: 05/21/19 Care time: The patient presented to the Emergency Department on the above date and was hospitalized for further evaluation of their emergent condition. - New Patient This patient is new to me today: Yes Date on this admission: 05/23/19 - Critical Care Critical Care patient: No ATTENDING PHYSICIAN STATEMENT I saw and evaluated the patient. I reviewed the resident's note and discussed the case with the resident. I agree with the resident's findings and plan as documented. SUBJECTIVE: OBJECTIVE: ASSESSMENT AND PLAN:
[2019-05-22] MEDS ORDERED: chlordiazePOXIDE HCL 25 MG CAPSULE ONE (01:45)
[2019-05-22] MEDS ORDERED: FOLIC ACID 1 MG TABLET (FP) ONE (01:46)
[2019-05-22] MEDS ORDERED: THIAMINE HCL 100 MG TABLET (FP) ONE (01:46)
[2019-05-22] MEDS: chlordiazePOXIDE HCL 25 MG CAPSULE PO SCH ×3 (02:01→02:04)
[2019-05-22] MEDS: THIAMINE HCL 100 MG TABLET (FP) PO SCH ×2 (02:02→09:46)
[2019-05-22] MEDS: FOLIC ACID 1 MG TABLET (FP) PO SCH ×2 (02:02→09:46)
[2019-05-22 02:31] VITALS: BMI 26.4
[2019-05-22] MEDS: chlordiazePOXIDE 5 MG CAPSULE PO SCH ×3 (05:35→20:26)
[2019-05-22 07:57] LABS: MAGNESIUM 2.1 mg/dL (1.8-2.4); PHOSPHOROUS 3.5 mg/dL (2.5-4.9)
[2019-05-22] MEDS: ENOXAPARIN NA (PORCINE) 40 MG/0.4 ML DISP.SYRIN SQ SCH (09:46)
[2019-05-22] MEDS ORDERED: chlordiazePOXIDE 5 MG CAPSULE ONE ×2 (09:50→22:29)
[2019-05-22] MEDS: chlordiazePOXIDE HCL 10 MG CAPSULE PO PRN ×2 (09:51→22:30)
[2019-05-22 10:33] LABS: EPI CELLS 0.8 /HPF (0-5/HPF); HYALINE CASTS 0 /lpf (0-8); URINE APPEARANCE CLEAR; URINE BACTERIA 4.7 /hpf (NEGATIVE); URINE BILIRUBIN NEGATIVE (NEGATIVE); URINE COLOR YELLOW; URINE GLUCOSE (UA) NEGATIVE (NEGATIVE); URINE KETONE TRACE (NEGATIVE); URINE LEUK ESTERASE 1+ (NEGATIVE); URINE NITRITE NEGATIVE (NEGATIVE); URINE PROTEIN NEGATIVE (NEGATIVE); URINE UROBILINOGEN 0.2 mg/dL (0.2-1.0); URINE WBC 2 /hpf (0-5)
[2019-05-22 10:39] LABS: COCAINE, UR NEGATIVE ng/ml (CUTOFF=300); METHADONE, UR NEGATIVE ng/ml (CUTOFF=300); OPIATES, URI NEGATIVE ng/ml (CUTOFF=300); PHENCYCLIDINE,URINE NEGATIVE ng/ml (CUTOFF=25); URINE AMPHETAMINES NEGATIVE ng/ml (CUTOFF=500); URINE BARBITURATES NEGATIVE ng/ml (CUTOFF=200)
[2019-05-22 10:48] LABS: URINE BENZODIAZEPINES POSITIVE ng/ml (CUTOFF=200)
--- NOTE | 2019-05-22 11:39 | PN ---
Physical Exam: SUBJECTIVE: Patient seen and examined, no complaints. Denies any nausea, vomiting or abdominal pain. OBJECTIVE: Vital Signs Period Temp Pulse Resp BP Sys/Martins Pulse Ox Last 24 Hr 98 F-99.2 F 66-113 17-20 126-153/85-107 95-100 Intake & Output 05/19/19 05/20/19 05/21/19 05/22/19 23:59 23:59 23:59 23:59 Intake Total 330 Balance 330 Weight 170 lb 168 lb 6.4 oz GENERAL: lying in bed in no acute distress Neck: soft, supple, no JVD Chest: CTAB, no rales or wheezing Abdomen:Soft, NT, ND, pos bowel sounds Extremities: no tremors or edema neuro: AAOx3, facial symmetry, tongue midline, power 5/5, sensation intact to light touch, EOMI, PERRL, cranial nerves II-XII intact, no deficit noted Laboratory Results - last 24 hr 05/21/19 05/21/19 05/21/19 20:00 20:00 20:00 WBC 8.0 RBC 4.45 Hgb 14.4 Hct 42.6 MCV 95.8 MCH 32.4 D MCHC 33.8 RDW 14.6 Plt Count 157 D MPV 8.7 D Absolute Neuts (auto) 6.1 Neutrophils % 76.0 Lymphocytes % 14.1 Monocytes % 8.7 Eosinophils % 0.8 Basophils % 0.4 Nucleated RBC % 0 Sodium 137 Potassium 4.1 Chloride 104 Carbon Dioxide 23 Anion Gap 10 BUN 6.4 L Creatinine 1.0 Est GFR (CKD-EPI)AfAm 109.40 Est GFR (CKD-EPI)NonAf 94.39 Random Glucose 91 Calcium 8.3 L Phosphorus Magnesium Total Bilirubin 0.3 AST 54 H ALT 23 Alkaline Phosphatase 65 Total Protein 6.8 Albumin 3.6 Urine Color Urine Appearance Urine pH Ur Specific [place] Urine Protein Urine Glucose (UA) Urine Ketones Urine Blood Urine Nitrite Urine Bilirubin Urine Urobilinogen Ur Leukocyte Esterase Urine WBC (Auto) Urine Casts (Auto) U Epithel Cells (Auto) Urine Bacteria (Auto) Opiates Screen Methadone Screen Barbiturate Screen Phencyclidine Screen Ur Amphetamines Screen MDMA (Ecstasy) Screen Benzodiazepines Screen Cocaine Screen U Marijuana (THC) Screen Alcohol, Quantitative 48.5 H 05/22/19 05/22/19 05/22/19 06:15 10:15 10:15 WBC RBC Hgb Hct MCV MCH MCHC RDW Plt Count MPV Absolute Neuts (auto) Neutrophils % Lymphocytes % Monocytes % Eosinophils % Basophils % Nucleated RBC % Sodium Potassium Chloride Carbon Dioxide Anion Gap BUN Creatinine Est GFR (CKD-EPI)AfAm Est GFR (CKD-EPI)NonAf Random Glucose Calcium Phosphorus 3.5 Magnesium 2.1 Total Bilirubin AST ALT Alkaline Phosphatase Total Protein Albumin Urine Color Yellow Urine Appearance Clear Urine pH 7.0 Ur Specific [place] 1.016 Urine Protein Negative Urine Glucose (UA) Negative Urine Ketones Trace H Urine Blood Negative Urine Nitrite Negative Urine Bilirubin Negative Urine Urobilinogen 0.2 Ur Leukocyte Esterase 1+ H Urine WBC (Auto) 2 Urine Casts (Auto) 0 U Epithel Cells (Auto) 0.8 Urine Bacteria (Auto) 4.7 Opiates Screen Negative Methadone Screen Negative Barbiturate Screen Negative Phencyclidine Screen Negative Ur Amphetamines Screen Negative MDMA (Ecstasy) Screen Negative Benzodiazepines Screen Positive A* Cocaine Screen Negative U Marijuana (THC) Screen Positive A* Alcohol, Quantitative Active Medications Generic Name Dose Route Start Last Admin Trade Name Freq PRN Reason Stop Dose Admin Chlordiazepoxide HCl 10 mg 05/23/19 00:00 Librium - PO 05/23/19 23:59 Q12H PRN Signs/symptoms of Withdrawal Chlordiazepoxide HCl 10 mg 05/21/19 23:54 05/22/19 09:51 Librium - PO 05/22/19 23:59 10 mg Q8H PRN Administration Signs/symptoms of Withdrawal Chlordiazepoxide HCl 15 mg 05/22/19 05:00 05/22/19 05:35 Librium - PO 05/22/19 21:01 15 mg Q8H LEMUEL Administration Chlordiazepoxide HCl 10 mg 05/23/19 05:00 Librium - PO 05/23/19 21:01 Q8H LEMUEL Chlordiazepoxide HCl 10 mg 05/24/19 05:00 Librium - PO 05/24/19 05:01 ONCE ONE Enoxaparin Sodium 40 mg 05/22/19 10:00 05/22/19 09:46 Lovenox - SQ 40 mg DAILY LEMUEL Administration Folic Acid 1 mg 05/21/19 23:56 05/22/19 09:46 Folic Acid - PO 1 mg DAILY LEMUEL Administration Thiamine HCl 100 mg 05/21/19 23:56 05/22/19 09:46 Vitamin B1 - PO 100 mg DAILY LEMUEL Administration CT head/C-spine results noted ASSESSMENT/PLAN: 38 yom with PMHx of long standing ETOH abuse, ETOH withdrawal seizures, brought in from [facility] after having a seizure while waiting to be admitted to detox. -Seizure, likely alcohol withdrawal seizure, given timeline and similar prior history -ETOH abuse/dependence -Cannabis use -Tobacco dependence Plan: trauma w/u neg. No further seizure. Seizure precautions. Librium detox. ETOH cessation counseling provided Plan for d/c to [facility] in 24 hours if no further seizure or concerns noted. Discussed with patient and nursing. Visit type - Emergency Visit Emergency Visit: Yes ED Registration Date: 05/21/19 Care time: The patient presented to the Emergency Department on the above date and was hospitalized for further evaluation of their emergent condition. - New Patient This patient is new to me today: Yes Date on this admission: 05/22/19 - Critical Care Critical Care patient: No - Discharge Referral Referred to [facility] Med P.C.: No
--- NOTE | 2019-05-22 16:48 | EKG ---
Test Reason : Blood Pressure : / mmHG Vent. Rate : 091 BPM Atrial Rate : 091 BPM P-R Int : 162 ms QRS Dur : 104 ms QT Int : 342 ms P-R-T Axes : 044 074 027 degrees QTc Int : 420 ms NORMAL SINUS RHYTHM NORMAL ECG NO PREVIOUS ECGS AVAILABLE Confirmed by KENAN FAJARDO MD ([id number]) on 05/22/2019 4:48:07 PM Referred By: Confirmed By:KENAN FAJARDO MD
[2019-05-22] MEDS ORDERED: MELATONIN 5 MG TABLETS PO ONE (21:54)
[2019-05-22] MEDS ORDERED: MELATONIN 1 MG TABLET PO ONE (21:56)
[2019-05-23] MEDS ORDERED: chlordiazePOXIDE HCL 10 MG CAPSULE PO PRN
[2019-05-23] MEDS ORDERED: chlordiazePOXIDE HCL 10 MG CAPSULE PO SCH (05:00)
[2019-05-23] MEDS ORDERED: chlordiazePOXIDE 5 MG CAPSULE ONE ×2 (05:40→08:25)
--- NOTE | 2019-05-23 09:15 | DS ---
Physical Exam: SUBJECTIVE: No acute events overnight. No complaints today. Pt denies any tremulousness, hallucinations (auditory and visual), anxiety, irritability. No SOB, CP, palpitations, weakness, numbness. OBJECTIVE: Vital Signs Period Temp Pulse Resp BP Sys/Martins Pulse Ox Last 24 Hr 98 F-98.3 F 75-115 18-20 119-162/78-99 100-100 PHYSICAL EXAM GENERAL: The patient is awake, alert, and fully oriented, in no acute distress. HEENT: Nc/AT, EOMi, SWATI, sclera anicteric, MMM NECK: No JVD LUNGS: Breath sounds equal, clear to auscultation bilaterally, no wheezes, no crackles, no accessory muscle use. HEART: RRR, S1, S2 without murmur ABDOMEN: Soft, Nt/ND, normoactive bowel sounds, mild hepatomegaly 1 finger- width past rib angle, no asterixis EXTREMITIES: 2+ pulses, warm, well-perfused, no edema. PSYCH: Normal mood, normal affect. SKIN: Warm, dry, no jaundice, no rashes or lesions noted. LABS Laboratory Results - last 24 hr 05/22/19 05/22/19 10:15 10:15 Urine Color Yellow Urine Appearance Clear Urine pH 7.0 Ur Specific [place] 1.016 Urine Protein Negative Urine Glucose (UA) Negative Urine Ketones Trace H Urine Blood Negative Urine Nitrite Negative Urine Bilirubin Negative Urine Urobilinogen 0.2 Ur Leukocyte Esterase 1+ H Urine WBC (Auto) 2 Urine Casts (Auto) 0 U Epithel Cells (Auto) 0.8 Urine Bacteria (Auto) 4.7 Opiates Screen Negative Methadone Screen Negative Barbiturate Screen Negative Phencyclidine Screen Negative Ur Amphetamines Screen Negative MDMA (Ecstasy) Screen Negative Benzodiazepines Screen Positive A* Cocaine Screen Negative U Marijuana (THC) Screen Positive A* Imaging: Head CT noncontrast: Impression: No acute bleed or fracture.No CT evidence of acute infarct Cervical spine CT: IMPRESSION: No significant interval change. No acute findings as described HOSPITAL COURSE: Date of Admission:05/21/19 Date of Discharge: 05/23/19 Pt was admitted on 05/21/19 due to alcohol withdrawal seizures which he had suffered from in the past. Pt was placed onto a Librium protocol and wishes to continue Detox and possible outpatient rehabilitation. Pt has not had a seizure in 24hours and he is being discharged to [facility] to finish his detox program and possible rehab. Pt is to continue 2 more doses of 10mg q8h of Librium with PRN breakthrough and to have any additional doses as seen fit by the physicians at the addiction center. Minutes to complete discharge: 35 Discharge Summary Problems reviewed: Yes Reason For Visit: ALCOHOL WITHDRAWAL SEIZURE Current Active Problems Alcohol withdrawal (Acute) Fall (Acute) Seizure due to alcohol withdrawal (Acute) Tongue injury (Acute) Tremor due to drug withdrawal (Acute) Condition: Stable - Instructions Diet, Activity, Other Instructions: You were seen here due to your seizures. They were likely from withdrawals. You are being sent back to [facility] to finish your detox regimen. Please do not drive, operate heavy machinery, and avoid heights, being alone in the water, and being alone with children due to your seizures. Medications: Continue to take your Librium that is given to you at [facility] Continue to take Folic acid and thiamine daily Please stop drinking alcohol as this can have a negative impact on your health Follow-up: Please follow-up with a primary care physician to help establish care. One has been provided to you (Dr. [facility]). Please follow-up with outpatient rehab facilities that will be provided to you at [facility] as they can help you stop drinking. Referrals: Carolynn Espinal DO [Staff Physician] - Anival Alcala MD [Staff Physician] - Disposition: TRANSFER ACUTE CARE/OTHER HOSP - Home Medications Comprehensive Discharge Medication List: Ambulatory Orders Chlordiazepoxide [Librium -] 10 mg PO Q12H PRN #10 capsule MDD 20mg 05/23/19 Chlordiazepoxide [Librium -] 10 mg PO Q8H #2 capsule MDD 30mg 05/23/19 Folic Acid - 1 mg PO DAILY tablet 05/23/19 Thiamine HCl [Vitamin B1 -] 100 mg PO DAILY tablet 05/23/19 This patient is new to me today: Yes Date on this admission: 05/23/19 Emergency Visit: Yes ED Registration Date: 05/21/19 Care time: The patient presented to the Emergency Department on the above date and was hospitalized for further evaluation of their emergent condition. Critical Care patient: No - Discharge Referral Referred to [facility] Med P.C.: No
[2019-05-23] MEDS: THIAMINE HCL 100 MG TABLET (FP) PO SCH (09:34)
[2019-05-23] MEDS: FOLIC ACID 1 MG TABLET (FP) PO SCH (09:34)
[2019-05-23] MEDS: ENOXAPARIN NA (PORCINE) 40 MG/0.4 ML DISP.SYRIN SQ SCH (09:34)
[2019-05-23 10:11] VITALS: BP 136/97; PULSE 89; TEMP 98.2
--- NOTE | 2019-05-23 10:56 | PN ---
Teaching Attending Note Name of Resident: Jackson Monahan ATTENDING PHYSICIAN STATEMENT I saw and evaluated the patient. I reviewed the resident's note and discussed the case with the resident. I agree with the resident's findings and plan as documented with exceptions below. SUBJECTIVE: Patient seen and examined, doing well, no further seizures of concerns. OBJECTIVE: Vital Signs Period Temp Pulse Resp BP Sys/Martins Pulse Ox Last 24 Hr 98 F-98.3 F 75-115 18-20 119-162/78-99 100-100 Intake & Output 05/20/19 05/21/19 05/22/19 05/23/19 23:59 23:59 23:59 23:59 Intake Total 1060 120 Balance 1060 120 Weight 170 lb 168 lb 6.4 oz general: ambulating in hallway, no concerns Neck: soft, supple Chest: CTAB no rales or wheezing Abdomen:SOft Extremities: no edema Neuro: Unchanged, non focal psych: pleasant, motivated Home Medications Medication Instructions Recorded Chlordiazepoxide [Librium -] 10 mg PO Q12H PRN #10 capsule MDD 05/23/19 20mg Chlordiazepoxide [Librium -] 10 mg PO Q8H #2 capsule MDD 30mg 05/23/19 Folic Acid - 1 mg PO DAILY tablet 05/23/19 Thiamine HCl [Vitamin B1 -] 100 mg PO DAILY tablet 05/23/19 ASSESSMENT AND PLAN: 38 yom with PMHx of long standing ETOH abuse, ETOH withdrawal seizures, brought in from [facility] after having a seizure while waiting to be admitted to detox. -Seizure, likely alcohol withdrawal seizure, given timeline and similar prior history -ETOH abuse/dependence -Cannabis use -Tobacco dependence Plan: No further seizures. doing well Discussed with Dr. Espinal, d/c back to [facility]. ETOH/cannabis cessation counseling and need for close follow up with PCP/ psychiatry discussed with patient. Patient relays understanding and in agreement D/c to [facility] discussed with nursing.
--- NOTE | 2019-05-23 12:40 | HP ---
[facility]ANG Rehab Assess/Revision - Admission History Admitted to Rehab from: Emergency Department Date of Admission to Rehab: 05/23/2019 - Vital signs Vital Signs: Vital Signs Period Temp Pulse Resp BP Sys/Martins Pulse Ox Last 24 Hr 98 F-98.3 F 75-115 18-20 119-162/78-99 100-100 - Findings Detox History & Physical reviewed: Yes Concur with findings: Yes Comments/Additional Findings: Patient was sent to [facility] for seizure. It was determined to be withdrawal seizures. He was started on detox regimen of librium while there. He returns here to complete the detox. [facility] CIWA - CIWA Score Nausea/Vomitin-No Nausea/No Vomiting Muscle Tremors: 1-None Visible, but [place] Anxiety: 3 Agitation: 1-Slight > Activity Paroxysmal Sweats: No Perspiration Orientation: 0-Oriented Tacttile Disturbances: 0-None Auditory Disturbances: 0-None Visual Disturbances: 0-None Headache: 0-None Present CIWA-Ar Total Score: 5
[2019-05-23] MEDS ORDERED: MAG HYDROX/AL HYDROX/SIMETH 30 ML UNIT-DOSE CUP PO PRN (12:42)
[2019-05-23] MEDS ORDERED: hydrOXYzine PAMOATE 25 MG CAPSULE (FP) PO PRN (12:42)
[2019-05-23] MEDS ORDERED: MENTHOL/PHENOL 1 EACH UD MM PRN (12:42)
[2019-05-23] MEDS ORDERED: IBUPROFEN 400 MG TABLET (FP) PO PRN (12:42)
[2019-05-23] MEDS ORDERED: BISMUTH SUBSALICYLATE 524 MG/30 ML UD PO PRN (12:42)
[2019-05-23] MEDS ORDERED: METHOCARBAMOL 500 MG TABLET PO PRN (12:42)
[2019-05-23] MEDS ORDERED: ACETAMINOPHEN 325 MG TABLET (FP) PO PRN ×2 (12:42)
[2019-05-23] MEDS ORDERED: MAGNESIUM CITRATE 300 ML BOTTLE PO PRN (12:42)
[2019-05-23] MEDS ORDERED: MAGNESIUM HYDROX 2400MG/30ML ORAL SUSPENSION 30 ML CUP PO PRN (12:42)
[2019-05-23] MEDS ORDERED: BENZOCAINE/MENTH/CETYLPYRD CL 1 EACH LOZENGE MM PRN (13:30)
[2019-05-23] MEDS ORDERED: THIAMINE HCL 100 MG TABLET (FP) PO SCH (22:00)
[2019-05-23] MEDS ORDERED: MELATONIN 5 MG TABLETS PO PRN (22:00)
[2019-05-24] MEDS ORDERED: chlordiazePOXIDE HCL 10 MG CAPSULE PO ONE (05:00)
[2019-05-24] MEDS ORDERED: PRENATAL VITAMINS W/ FOLIC ACID TABLET (FP) PO SCH (10:00)
[2019-05-24] MEDS ORDERED: NICOTINE 7 MG/24 HOURS TOPICAL PATCH TD SCH (10:00)
[2019-05-24] MEDS ORDERED: chlordiazePOXIDE 5 MG CAPSULE PO SCH (17:00)
== END 2019-05-23 11:50 | disposition short-term general hospital (02) | DRG 775 ==
LOC: JER 18:49 → JERBED 22:21 → J4W 05-22 02:15
PROVIDERS: ADMIT Internal Medicine; ATTEND Hospitalist
DX: F10.230 Alcohol dependence with withdrawal, uncomplicated (principal); F17.210 Nicotine dependence, cigarettes, uncomplicated; R25.1 Tremor, unspecified; F12.10 Cannabis abuse, uncomplicated; G40.89 Other seizures; R00.0 Tachycardia, unspecified; E86.0 Dehydration
CPT/HCPCS: 36415; 70450-TC; 72125-TC; 80053; 80307; 81003; 83735; 84100; 85025; 87086; 93005; 93010; 99285-25

== ENCOUNTER 2019-05-23 12:13 | Inpatient (IN) | payer OTHER ==
[2019-05-23 12:23] VITALS: BMI 26.2
--- NOTE | 2019-05-23 14:00 | HP ---
[facility] Rehab Assess/Revision - Admission History Admitted to Rehab from: [address] - Vital signs Vital Signs: Vital Signs Period Temp Pulse Resp BP Sys/Martins Pulse Ox Last 24 Hr 98.2 F 96 18 148/99 - Findings Detox History & Physical reviewed: Yes (refer back to prior detox admission from 05/21/19) Concur with findings: Yes (return back to continue detox) Inpatient Rehab Admission - Rehab Decision to Admit Inpatient rehab admission?: No - Initial Determination Are CD services needed?: No Free of communicable disease: No Not in need of hospitalization: No - Rehab Admission Criteria Previous failed treatment: No Poor recovery environment: No Comorbidities: No Lacks judgement: No Patient is meeting Inpatient Rehab admission criteria:: No
[2019-05-23] MEDS ORDERED: BISMUTH SUBSALICYLATE 262 MG/15 ML BTL PO PRN (14:10)
[2019-05-23] MEDS ORDERED: IBUPROFEN 400 MG TABLET (FP) PO PRN (14:10)
[2019-05-23] MEDS ORDERED: MAGNESIUM CITRATE 300 ML BOTTLE PO PRN (14:10)
[2019-05-23] MEDS ORDERED: MENTHOL/PHENOL 1 EACH UD MM PRN (14:10)
[2019-05-23] MEDS ORDERED: MAG HYDROX/AL HYDROX/SIMETH 30 ML UNIT-DOSE CUP PO PRN (14:10)
[2019-05-23] MEDS ORDERED: MAGNESIUM HYDROX 2400MG/30ML ORAL SUSPENSION 30 ML CUP PO PRN (14:10)
[2019-05-23] MEDS ORDERED: ACETAMINOPHEN 325 MG TABLET (FP) PO PRN ×2 (14:10)
[2019-05-23] MEDS ORDERED: METHOCARBAMOL 500 MG TABLET PO PRN (14:10)
[2019-05-23] MEDS: hydrOXYzine PAMOATE 25 MG CAPSULE (FP) PO PRN ×2 (15:07→21:03)
[2019-05-23] MEDS ORDERED: chlordiazePOXIDE HCL 25 MG CAPSULE PO ONE (15:13)
[2019-05-23] MEDS ORDERED: chlordiazePOXIDE HCL 10 MG CAPSULE PO ONE (15:30)
[2019-05-23] MEDS: THIAMINE HCL 100 MG TABLET (FP) PO SCH (21:03)
[2019-05-23] MEDS: MELATONIN 5 MG TABLETS PO PRN (21:03)
[2019-05-24] MEDS ORDERED: PRENATAL VITAMINS W/ FOLIC ACID TABLET (FP) PO SCH (10:00)
[2019-05-24] MEDS: chlordiazePOXIDE 5 MG CAPSULE PO SCH ×3 (11:43→23:02)
[2019-05-24] MEDS: MELATONIN 5 MG TABLETS PO PRN (22:14)
[2019-05-24] MEDS: THIAMINE HCL 100 MG TABLET (FP) PO SCH (22:14)
[2019-05-25 06:11] VITALS: BP 150/86; PULSE 65; TEMP 98.1
--- NOTE | 2019-05-25 08:58 | DS ---
[facility] Detox Discharge Summary Admission Date: 05/23/19 Discharge Date: 05/25/19 - History Present History: Alcohol Dependence, Cannabis Dependence - Physical Exam Results Vital Signs: Vital Signs Temperature 98.1 F 05/25/19 06:10 Pulse Rate 65 05/25/19 06:10 Respiratory Rate 18 05/25/19 06:10 Blood Pressure 150/86 05/25/19 06:10 O2 Sat by Pulse Oximetry (%) Pertinent Admission Physical Exam Findings: pt admitted in withdrawals pt was seen and held in [place] ED x 2 days for seizure d/o d/t alcohol withdrawals pt then was sent to our detox for continued treatment. today pt is feeling better with no s/s of withdrawals and ready to go home. - Treatment Hospital Course: Detox Protocol Followed, Detoxed Safely, Responded well, Discharged Condition Good, Rehab Referral Accepted Patient has Accepted a Rehab Referral to: referral provided - Medication Discharge Medications: Ambulatory Orders NK [No Known Home Medication] 05/23/19 - Diagnosis (1) Alcohol dependence with intoxication, uncomplicated Current Visit: Yes Status: Chronic (2) Alcohol withdrawal Current Visit: Yes Status: Chronic Qualifiers: Complication of substance-induced condition: uncomplicated Qualified Code(s ): F10.230 - Alcohol dependence with withdrawal, uncomplicated (3) Elevated liver enzymes Current Visit: Yes Status: Acute (4) History of positive PPD Current Visit: No Status: Acute (5) Hypokalemia Current Visit: No Status: Acute (6) Seizure Current Visit: No Status: Acute (7) Seizure due to alcohol withdrawal Current Visit: Yes Status: Chronic Qualifiers: Complication of substance-induced condition: uncomplicated Qualified Code(s ): F10.230 - Alcohol dependence with withdrawal, uncomplicated (8) Thrombocytopenia Current Visit: No Status: Acute (9) Tongue injury Current Visit: No Status: Acute (10) Tremor due to drug withdrawal Current Visit: No Status: Acute (11) Cannabis dependence Current Visit: Yes Status: Chronic (12) Nicotine dependence Current Visit: Yes Status: Chronic Qualifiers: Nicotine product type: cigarettes Substance use status: uncomplicated Qualified Code(s): F17.210 - Nicotine dependence, cigarettes, uncomplicated - AMA Did Patient Leave Against Medical Advice: No
== END 2019-05-25 08:55 | disposition home or self-care (01) | DRG 775 ==
LOC: YASAS 12:13 → Y6N 13:43
PROVIDERS: ADMIT Surgery; ATTEND Surgery
PROC: HZ2ZZZZ Detoxification Services for Substance Abuse Treatment (ICD-10-PCS; principal; 2019-05-23)
DX: F10.230 Alcohol dependence with withdrawal, uncomplicated (principal); F10.220 Alcohol dependence with intoxication, uncomplicated; F12.20 Cannabis dependence, uncomplicated; F17.210 Nicotine dependence, cigarettes, uncomplicated; E78.6 Lipoprotein deficiency; R76.11 Nonspecific reaction to tuberculin skin test without active tuberculosis; R94.5 Abnormal results of liver function studies; D69.6 Thrombocytopenia, unspecified; G25.1 Drug-induced tremor; Z86.69 Personal history of other diseases of the nervous system and sense organs

== ENCOUNTER 2019-09-02 09:27 | Inpatient (IN) | payer OTHER ==
[2019-09-02 09:50] VITALS: BMI 25.8
--- NOTE | 2019-09-02 10:29 | HP ---
CIWA Score Nausea/Vomitin Muscle Tremors: 2 Anxiety: 3 Agitation: 3 Paroxysmal Sweats: No Perspiration Orientation: 0-Oriented Tacttile Disturbances: 1-Very Mild Itch/Numbness Auditory Disturbances: 0-None Visual Disturbances: 0-None Headache: 2-Mild CIWA-Ar Total Score: 13 - Admission Criteria OASAS Guidelines: Admission for Medically Managed Detox: Requires at least one of the followin. CIWA greater than 12 2. Seizures within the past 24 hours 3. Delirium tremens within the past 24 hours 4. Hallucinations within the past 24 hours 5. Acute intervention needed for co occurring medical disorder 6. Acute intervention needed for co occurring psychiatric disorder 7. Severe withdrawal that cannot be handled at a lower level of care (continued vomiting, continued diarrhea, abnormal vital signs) requiring intravenous medication and/or fluids 8. 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 - Smoking History Smoking history: Current every day smoker Have you smoked in the past 12 months: Yes Aproximately how many cigarettes per day: 10 - Alcohol/Substance Use Hx Alcohol Use: Yes History of Substance Use: reports: Marijuana - Social History Usual Living Arrangement: Yes: Alone Occupation: unemployed Admission [facility] Chief Complaint: i need help stop drinking alcohol and cannabis Allergies/Adverse Reactions: Allergies Allergy/AdvReac Type Severity Reaction Status Date / Time No Known Allergies Allergy Verified 09/02/19 09:44 History of Present Illness: this 38 years old male with alcohol and marijuana dependence,seeking detox seizure alcohol related multiple admission keep relapsing nicotine dependence history of back surgery 10/11 left acl arthroscopic surgery right knee 2009 positive ppd lasr chest xray 09/02/18 lnno significant period of sobriety Exam Limitations: No Limitations - Ebola screening Have you traveled outside of the country in the last 21 days: No Have you had contact with anyone from an Ebola affected area: No Do you have a fever: No - Review of Systems Constitutional: Loss of Appetite, Changes in sleep EENT: reports: Nose Congestion Respiratory: reports: No Symptoms reported Cardiac: reports: No Symptoms Reported GI: reports: Nausea, Poor Appetite, Abdominal cramping : reports: No Symptoms Reported Musculoskeletal: reports: Back Pain, Muscle Pain Integumentary: reports: Dryness Neuro: reports: Headache, Tremors Endocrine: reports: No Symptoms Reported Hematology: reports: No Symptoms Reported Psychiatric: reports: No Sypmtoms Reported, Judgement Intact, Mood/Affect Appropiate, Orientated x3 Other Systems: Reviewed and Negative Patient History - Patient Medical History Hx Anemia: No Hx Asthma: No Hx Chronic Obstructive Pulmonary Disease (COPD): No Hx Cancer: No Hx Cardiac Disorders: No Hx Congestive Heart Failure: No Hx Hypertension: No Hx Hypercholesterolemia: No Hx Pacemaker: No HX Cerebrovascular Accident: No Hx Seizures: Yes (was sent to ER 05/21/19) Hx Dementia: No Hx Diabetes: No Hx Gastrointestinal Disorders: No Hx Liver Disease: No Hx Genitourinary Disorders: No Hx Sexually Transmitted Disorders: No Hx Renal Disease (ESRD): No Hx Thyroid Disease: No Hx Human Immunodeficiency Virus (HIV): No (2019 negative) Hx Hepatitis C: No Hx Depression: Yes Hx Suicide Attempt: No Hx Bipolar Disorder: No Hx Schizophrenia: No Other Medical History: no suicidal,no homicidal - Patient Surgical History Past Surgical History: Yes Hx Neurologic Surgery: No Hx Cataract Extraction: No Hx Cardiac Surgery: No Hx Lung Surgery: No Hx Breast Surgery: No Hx Breast Biopsy: No Hx Abdominal Surgery: No Hx Appendectomy: No Hx Cholecystectomy: No Hx Genitourinary Surgery: No Hx Section: No Hx Orthopedic Surgery: Yes (R knee meniscus repair R acl repair at age 15) Other Surgical History: laminectomy 10/12,R rotator cuff arthroscopic in 2007 Anesthesia Reaction: No - PPD History Previous Implant?: Yes Documented Results: Positive w/proof Date: 09/10/18 Results: chestxray neg - Smoking Cessation Smoking history: Current every day smoker Have you smoked in the past 12 months: Yes Aproximately how many cigarettes per day: 10 Hx Chewing Tobacco Use: No Initiated information on smoking cessation: Yes 'Breaking Loose' booklet given: 09/02/19 - Substance & Tx. History Hx Alcohol Use: Yes Hx Substance Use: Yes Substance Use Type: Marijuana Hx Substance Use Treatment: Yes ([facility] 06/20/19 to 06/24/19) - Substances abused Alcohol Substance route: Oral Frequency: Daily Amount used: 1 pint of vodka Age of first use: 17 Date of last use: 09/02/19 Marijuana/Hashish Substance route: Smoking Frequency: 1-2 times per week Amount used: 4 blunt Age of first use: 17 Date of last use: 09/02/19 Admission Physical Exam [facility] - Vital Signs Vital Signs: Vital Signs - 24 hr 09/02/19 09:45 Temperature 97.6 F Pulse Rate 119 H Respiratory 20 Rate Blood Pressure 146/84 - Physical General Appearance: Yes: Mild Distress, Tremorous, Irritable, Anxious HEENTM: Yes: Normal ENT Inspection, [place], Pharynx Normal Respiratory: Yes: Lungs Clear, Normal Breath Sounds, No Respiratory Distress Neck: Yes: Within Normal Limits, Supple, Trachea in good position Breast: Yes: Within Normal Limits Cardiology: Yes: Regular Rhythm, Regular Rate, S1, S2 Abdominal: Yes: Normal Bowel Sounds, Non Tender, Soft Genitourinary: Yes: Within Normal Limits Back: Yes: Muscle Spasm Musculoskeletal: Yes: Back pain, Muscle Pain Extremities: Yes: Tremors Neurological: Yes: soap press feeder II-XII NML intact, Fully Oriented, Alert, Motor Strength 5/5 Integumentary: Yes: Dry Lymphatic: Yes: Within Normal Limits - Diagnostic (1) Alcohol dependence with uncomplicated withdrawal Current Visit: Yes Status: Acute (2) History of positive PPD Current Visit: No Status: Acute (3) Cannabis dependence Current Visit: No Status: Chronic (4) Nicotine dependence Current Visit: No Status: Chronic Qualifiers: Nicotine product type: cigarettes Substance use status: uncomplicated Qualified Code(s): F17.210 - Nicotine dependence, cigarettes, uncomplicated (5) Seizure due to alcohol withdrawal Current Visit: No Status: Chronic Qualifiers: Complication of substance-induced condition: uncomplicated Qualified Code(s ): F10.230 - Alcohol dependence with withdrawal, uncomplicated Cleared for Admission [facility] - Detox or Rehab [facility] Level of Care: Medically Managed Detox Regimen/Protocol: Librium Breathalyzer - Breathalyzer Breathalyzer: 0.220 Urine Drug Screen - Test Device Lot number: [id number] Expiration date: 03/23/21 - Control Is test valid?: Yes - Results Drug screen NEGATIVE: No Urine drug screen results: THC-Marijuana Inpatient Rehab Admission - Rehab Decision to Admit Inpatient rehab admission?: No
[2019-09-02] MEDS ORDERED: MAG HYDROX/AL HYDROX/SIMETH 30 ML UNIT-DOSE CUP PO PRN (10:51)
[2019-09-02] MEDS ORDERED: ACETAMINOPHEN 325 MG TABLET (FP) PO PRN ×2 (10:51)
[2019-09-02] MEDS ORDERED: IBUPROFEN 400 MG TABLET (FP) PO PRN (10:51)
[2019-09-02] MEDS ORDERED: BISMUTH SUBSALICYLATE 262 MG/15 ML BTL PO PRN (10:51)
[2019-09-02] MEDS ORDERED: MENTHOL/PHENOL 1 EACH UD MM PRN (10:51)
[2019-09-02] MEDS ORDERED: NICOTINE POLACRILEX 2 MG GUM BUC PRN (10:51)
[2019-09-02] MEDS ORDERED: MAGNESIUM HYDROX 2400MG/30ML ORAL SUSPENSION 30 ML CUP PO PRN (10:51)
[2019-09-02] MEDS ORDERED: MAGNESIUM CITRATE 300 ML BOTTLE PO PRN (10:51)
[2019-09-02] MEDS: chlordiazePOXIDE HCL 10 MG CAPSULE PO PRN (11:26)
[2019-09-02] MEDS: NICOTINE 21 MG/24 HOURS TOPICAL PATCH TD SCH (11:27)
[2019-09-02] MEDS: chlordiazePOXIDE HCL 25 MG CAPSULE PO SCH ×2 (13:08→22:04)
[2019-09-02] MEDS: hydrOXYzine PAMOATE 25 MG CAPSULE (FP) PO PRN ×2 (13:08→18:59)
[2019-09-02 15:49] LABS: HEMATOCRIT 50.9 % (35.4-49); HEMOGLOBIN 16.9 GM/dL (11.7-16.9); MCH 31.9 pg (25.7-33.7); MCHC 33.2 g/dl (32.0-35.9); MEAN CELL VOLUME 96.2 fl (80-96); MEAN PLT VOLUME 8.5 fl (7.5-11.1); PLATELET COUNT 200 K/MM3 (134-434); RBC 5.29 M/mm3 (4.00-5.60); RDW 15.4 % (11.9-15.9); WHITE BLOOD COUNT 5.7 K/mm3 (4.0-10.0)
[2019-09-02 16:03] LABS: ALBUMIN 4.2 g/dl (3.4-5.0); BILIRUBIN,TOTAL 0.3 mg/dL (0.2-1); BLOOD UREA NITROGEN 3.7 mg/dL (7-18); POTASSIUM 3.7 mmol/L (3.5-5.1); TOT PROT 7.5 g/dl (6.4-8.2)
[2019-09-02] MEDS: METHOCARBAMOL 500 MG TABLET PO PRN (17:26)
[2019-09-02] MEDS: THIAMINE HCL 100 MG TABLET (FP) PO SCH (22:03)
[2019-09-02] MEDS: MELATONIN 5 MG TABLETS PO PRN (22:04)
[2019-09-03] MEDS: chlordiazePOXIDE HCL 25 MG CAPSULE PO SCH ×3 (05:51→22:14)
[2019-09-03] MEDS: METHOCARBAMOL 500 MG TABLET PO PRN ×3 (09:04→23:39)
[2019-09-03] MEDS: PRENATAL VITAMINS W/ FOLIC ACID TABLET (FP) PO SCH (09:04)
[2019-09-03] MEDS: hydrOXYzine PAMOATE 25 MG CAPSULE (FP) PO PRN ×2 (09:04→14:35)
--- NOTE | 2019-09-03 10:22 | PN ---
[facility] CIWA - CIWA Score Nausea/Vomitin-No Nausea/No Vomiting Muscle Tremors: 2 Anxiety: 3 Agitation: 2 Paroxysmal Sweats: 3 Orientation: 0-Oriented Tacttile Disturbances: 0-None Auditory Disturbances: 0-None Visual Disturbances: 0-None Headache: 1-Very Mild CIWA-Ar Total Score: 11 S Progress Note (SOAP) Subjective: c/o sweats, anxiety, headache, and shakes. Objective: 09/03/19 10:21 Vital Signs 09/03/19 09/03/19 09/03/19 04:23 06:39 09:31 Temperature 97.5 F L 97 F L Pulse Rate 73 85 Respiratory 18 18 18 Rate Blood Pressure 117/76 135/88 Laboratory Last Values WBC 5.7 K/mm3 (4.0-10.0) 09/02/19 10:55 RBC 5.29 M/mm3 (4.00-5.60) 09/02/19 10:55 Hgb 16.9 GM/dL (11.7-16.9) 09/02/19 10:55 Hct 50.9 % (35.4-49) H D 09/02/19 10:55 MCV 96.2 fl (80-96) H 09/02/19 10:55 MCH 31.9 pg (25.7-33.7) 09/02/19 10:55 MCHC 33.2 g/dl (32.0-35.9) 09/02/19 10:55 RDW 15.4 % (11.9-15.9) 09/02/19 10:55 Plt Count 200 K/MM3 (134-434) D 09/02/19 10:55 MPV 8.5 fl (7.5-11.1) 09/02/19 10:55 Sodium 140 mmol/L (136-145) 09/02/19 10:55 Potassium 3.7 mmol/L (3.5-5.1) 09/02/19 10:55 Chloride 105 mmol/L (98-107) 09/02/19 10:55 Carbon Dioxide 26 mmol/L (21-32) 09/02/19 10:55 Anion Gap 9 MMOL/L (8-16) 09/02/19 10:55 BUN 3.7 mg/dL (7-18) L 09/02/19 10:55 Creatinine 1.0 mg/dL (0.55-1.3) 09/02/19 10:55 Est GFR (CKD-EPI)AfAm 109.40 09/02/19 10:55 Est GFR (CKD-EPI)NonAf 94.39 09/02/19 10:55 Random Glucose 105 mg/dL (74-106) 09/02/19 10:55 Calcium 9.0 mg/dL (8.5-10.1) 09/02/19 10:55 Total Bilirubin 0.3 mg/dL (0.2-1) 09/02/19 10:55 AST 33 U/L (15-37) 09/02/19 10:55 ALT 26 U/L (13-61) 09/02/19 10:55 Alkaline Phosphatase 65 U/L (45-117) 09/02/19 10:55 Total Protein 7.5 g/dl (6.4-8.2) 09/02/19 10:55 Albumin 4.2 g/dl (3.4-5.0) 09/02/19 10:55 RPR Titer Nonreactive (NONREACTIVE) 09/02/19 10:55 Labs noted. Assessment: 09/03/19 10:22 AOX3, in no acute respiratory distress. Full ROM, ambulating in the unit. Withdrawal symptoms. Plan: continue detox.
[2019-09-03] MEDS: NICOTINE 21 MG/24 HOURS TOPICAL PATCH TD SCH (10:28)
[2019-09-03] MEDS: chlordiazePOXIDE HCL 10 MG CAPSULE PO PRN (17:34)
[2019-09-03] MEDS: MELATONIN 5 MG TABLETS PO PRN (22:14)
[2019-09-03] MEDS: THIAMINE HCL 100 MG TABLET (FP) PO SCH (22:14)
[2019-09-04] MEDS: chlordiazePOXIDE 5 MG CAPSULE PO SCH ×3 (05:29→22:17)
[2019-09-04] MEDS: PRENATAL VITAMINS W/ FOLIC ACID TABLET (FP) PO SCH (10:10)
[2019-09-04] MEDS: NICOTINE 21 MG/24 HOURS TOPICAL PATCH TD SCH (10:11)
[2019-09-04] MEDS: chlordiazePOXIDE HCL 10 MG CAPSULE PO PRN ×2 (10:11→18:01)
--- NOTE | 2019-09-04 10:26 | PN ---
S CIWA - CIWA Score Nausea/Vomitin-Mild Nausea/No Vomiting Muscle Tremors: 2 Anxiety: 3 Agitation: 0-Normal Activity Paroxysmal Sweats: 1-Minimal Palms Moist Orientation: 0-Oriented Tacttile Disturbances: 0-None Auditory Disturbances: 0-None Visual Disturbances: 0-None Headache: 1-Very Mild CIWA-Ar Total Score: 8 S Progress Note (SOAP) Subjective: 38 years old male admitted on 09/02/19 for alcohol withdrawal sx management treating with librium detox regimen c/o dry eyes from heating system denies visual acuity alteration denies pain artificial tear administration Objective: 09/04/19 10:26 Vital Signs Temperature 96.9 F L 09/04/19 09:21 Pulse Rate 86 09/04/19 09:21 Respiratory Rate 18 09/04/19 09:21 Blood Pressure 139/83 09/04/19 09:21 O2 Sat by Pulse Oximetry (%) Laboratory Last Values WBC 5.7 K/mm3 (4.0-10.0) 09/02/19 10:55 RBC 5.29 M/mm3 (4.00-5.60) 09/02/19 10:55 Hgb 16.9 GM/dL (11.7-16.9) 09/02/19 10:55 Hct 50.9 % (35.4-49) H D 09/02/19 10:55 MCV 96.2 fl (80-96) H 09/02/19 10:55 MCH 31.9 pg (25.7-33.7) 09/02/19 10:55 MCHC 33.2 g/dl (32.0-35.9) 09/02/19 10:55 RDW 15.4 % (11.9-15.9) 09/02/19 10:55 Plt Count 200 K/MM3 (134-434) D 09/02/19 10:55 MPV 8.5 fl (7.5-11.1) 09/02/19 10:55 Sodium 140 mmol/L (136-145) 09/02/19 10:55 Potassium 3.7 mmol/L (3.5-5.1) 09/02/19 10:55 Chloride 105 mmol/L (98-107) 09/02/19 10:55 Carbon Dioxide 26 mmol/L (21-32) 09/02/19 10:55 Anion Gap 9 MMOL/L (8-16) 09/02/19 10:55 BUN 3.7 mg/dL (7-18) L 09/02/19 10:55 Creatinine 1.0 mg/dL (0.55-1.3) 09/02/19 10:55 Est GFR (CKD-EPI)AfAm 109.40 09/02/19 10:55 Est GFR (CKD-EPI)NonAf 94.39 09/02/19 10:55 Random Glucose 105 mg/dL (74-106) 09/02/19 10:55 Calcium 9.0 mg/dL (8.5-10.1) 09/02/19 10:55 Total Bilirubin 0.3 mg/dL (0.2-1) 09/02/19 10:55 AST 33 U/L (15-37) 09/02/19 10:55 ALT 26 U/L (13-61) 09/02/19 10:55 Alkaline Phosphatase 65 U/L (45-117) 09/02/19 10:55 Total Protein 7.5 g/dl (6.4-8.2) 09/02/19 10:55 Albumin 4.2 g/dl (3.4-5.0) 09/02/19 10:55 RPR Titer Nonreactive (NONREACTIVE) 09/02/19 10:55 lab noted Assessment: 09/04/19 10:27 alcohol withdrawal Plan: librium regimen
[2019-09-04] MEDS: ARTIFICIAL TEARS (POLYVINYL ALCOHOL) OPTH DROPS OU SCH ×4 (11:28→22:45)
[2019-09-04] MEDS: hydrOXYzine PAMOATE 25 MG CAPSULE (FP) PO PRN ×2 (13:13→22:19)
[2019-09-04] MEDS: METHOCARBAMOL 500 MG TABLET PO PRN (18:02)
[2019-09-04] MEDS: THIAMINE HCL 100 MG TABLET (FP) PO SCH (22:17)
[2019-09-04] MEDS: MELATONIN 5 MG TABLETS PO PRN (22:19)
[2019-09-05] MEDS ORDERED: chlordiazePOXIDE HCL 10 MG CAPSULE PO PRN
[2019-09-05] MEDS ORDERED: chlordiazePOXIDE HCL 10 MG CAPSULE PO SCH (05:00)
[2019-09-05] MEDS: ARTIFICIAL TEARS (POLYVINYL ALCOHOL) OPTH DROPS OU SCH (09:12)
[2019-09-05] MEDS: PRENATAL VITAMINS W/ FOLIC ACID TABLET (FP) PO SCH (09:13)
[2019-09-05] MEDS: NICOTINE 21 MG/24 HOURS TOPICAL PATCH TD SCH (09:13)
[2019-09-05 09:16] VITALS: BP 134/90; PULSE 76; TEMP 96.9
--- NOTE | 2019-09-05 14:05 | DS ---
[facility] Detox Discharge Summary Admission Date: 09/02/19 Discharge Date: 09/05/19 - History Present History: Alcohol Dependence Additional Comments: 38 years old male admitted onn 09/02/19 for alcohol withdrawal sx management treated with librium detox regimen patient prefers to go one day early as per estimated discharge date of 09/06/19 case discussed with the nurse routine discharge is appropriated patient is alert oriented x 3 cardiac s1s2 regular rate rhythm respiratory clear lungs bilaterally on auscultation extremities full range of motion - Physical Exam Results Vital Signs: Vital Signs Temperature 96.9 F L 09/05/19 09:15 Pulse Rate 76 09/05/19 09:15 Respiratory Rate 16 09/05/19 09:15 Blood Pressure 134/90 09/05/19 09:15 O2 Sat by Pulse Oximetry (%) Pertinent Admission Physical Exam Findings: alcohol withdrawal Laboratory Last Values WBC 5.7 K/mm3 (4.0-10.0) 09/02/19 10:55 RBC 5.29 M/mm3 (4.00-5.60) 09/02/19 10:55 Hgb 16.9 GM/dL (11.7-16.9) 09/02/19 10:55 Hct 50.9 % (35.4-49) H D 09/02/19 10:55 MCV 96.2 fl (80-96) H 09/02/19 10:55 MCH 31.9 pg (25.7-33.7) 09/02/19 10:55 MCHC 33.2 g/dl (32.0-35.9) 09/02/19 10:55 RDW 15.4 % (11.9-15.9) 09/02/19 10:55 Plt Count 200 K/MM3 (134-434) D 09/02/19 10:55 MPV 8.5 fl (7.5-11.1) 09/02/19 10:55 Sodium 140 mmol/L (136-145) 09/02/19 10:55 Potassium 3.7 mmol/L (3.5-5.1) 09/02/19 10:55 Chloride 105 mmol/L (98-107) 09/02/19 10:55 Carbon Dioxide 26 mmol/L (21-32) 09/02/19 10:55 Anion Gap 9 MMOL/L (8-16) 09/02/19 10:55 BUN 3.7 mg/dL (7-18) L 09/02/19 10:55 Creatinine 1.0 mg/dL (0.55-1.3) 09/02/19 10:55 Est GFR (CKD-EPI)AfAm 109.40 09/02/19 10:55 Est GFR (CKD-EPI)NonAf 94.39 09/02/19 10:55 Random Glucose 105 mg/dL (74-106) 09/02/19 10:55 Calcium 9.0 mg/dL (8.5-10.1) 09/02/19 10:55 Total Bilirubin 0.3 mg/dL (0.2-1) 09/02/19 10:55 AST 33 U/L (15-37) 09/02/19 10:55 ALT 26 U/L (13-61) 09/02/19 10:55 Alkaline Phosphatase 65 U/L (45-117) 09/02/19 10:55 Total Protein 7.5 g/dl (6.4-8.2) 09/02/19 10:55 Albumin 4.2 g/dl (3.4-5.0) 09/02/19 10:55 RPR Titer Nonreactive (NONREACTIVE) 09/02/19 10:55 lab noted Vital Signs Temperature 96.9 F L 09/05/19 09:15 Pulse Rate 76 09/05/19 09:15 Respiratory Rate 16 09/05/19 09:15 Blood Pressure 134/90 09/05/19 09:15 O2 Sat by Pulse Oximetry (%) - Treatment Hospital Course: Detox Protocol Followed, Detoxed Safely, Responded well, Discharged Condition Good, Rehab Referral Accepted Patient has Accepted a Rehab Referral to: [facility] - Medication Discharge Medications: Ambulatory Orders Folic Acid 1 mg PO DAILY 09/02/19 Multivitamins [Tab-A-Vit -] 1 tab PO DAILY 09/02/19 - Diagnosis (1) Alcohol dependence with uncomplicated withdrawal Status: Acute (2) History of positive PPD Status: Resolved (3) Alcohol dependence with intoxication, uncomplicated Status: Acute (4) Nicotine dependence Status: Acute Qualifiers: Nicotine product type: cigarettes Substance use status: in withdrawal Qualified Code(s): F17.213 - Nicotine dependence, cigarettes, with withdrawal - AMA Did Patient Leave Against Medical Advice: No CIWA Score - CIWA Score Nausea/Vomitin-Mild Nausea/No Vomiting Muscle Tremors: 1-None Visible, but [place] Anxiety: 2 Agitation: 2 Paroxysmal Sweats: No Perspiration Orientation: 0-Oriented Tacttile Disturbances: 0-None Auditory Disturbances: 0-None Visual Disturbances: 0-None Headache: 2-Mild CIWA-Ar Total Score: 8
[2019-09-06] MEDS ORDERED: chlordiazePOXIDE HCL 10 MG CAPSULE PO ONE (05:00)
== END 2019-09-05 11:22 | disposition home or self-care (01) | DRG 775 ==
LOC: YASAS 09:27 → Y3N 10:52
PROVIDERS: ADMIT Allergy & Immunology; ATTEND Allergy & Immunology
PROC: HZ2ZZZZ Detoxification Services for Substance Abuse Treatment (ICD-10-PCS; principal; 2019-09-02)
DX: F10.230 Alcohol dependence with withdrawal, uncomplicated (principal); F10.220 Alcohol dependence with intoxication, uncomplicated; F12.20 Cannabis dependence, uncomplicated; F17.213 Nicotine dependence, cigarettes, with withdrawal; Z86.69 Personal history of other diseases of the nervous system and sense organs; Z56.0 Unemployment, unspecified
CPT/HCPCS: 36415; 80053; 85027; 86593

== ENCOUNTER 2020-12-19 11:26 | Inpatient (IN) | payer OTHER ==
[2020-12-19 11:54] VITALS: BMI 23.6
[2020-12-19] MEDS ORDERED: BISMUTH SUBSALICYLATE 524 MG/30 ML UD PO PRN (13:04)
[2020-12-19] MEDS ORDERED: NICOTINE POLACRILEX 2 MG GUM BUC PRN (13:04)
[2020-12-19] MEDS ORDERED: ACETAMINOPHEN 325 MG TABLET (FP) PO PRN ×2 (13:04)
[2020-12-19] MEDS ORDERED: MAGNESIUM HYDROX 2400MG/30ML ORAL SUSPENSION 30 ML CUP PO PRN (13:04)
[2020-12-19] MEDS ORDERED: MENTHOL/PHENOL 1 EACH UD MM PRN (13:04)
[2020-12-19] MEDS ORDERED: MAG HYDROX/AL HYDROX/SIMETH 30 ML UNIT-DOSE CUP PO PRN (13:04)
[2020-12-19] MEDS ORDERED: chlordiazePOXIDE HCL 25 MG CAPSULE PO PRN (13:04)
[2020-12-19] MEDS ORDERED: MAGNESIUM CITRATE 300 ML BOTTLE PO PRN (13:04)
[2020-12-19] MEDS ORDERED: IBUPROFEN 400 MG TABLET (FP) PO PRN (13:04)
[2020-12-19] MEDS ORDERED: ONDANSETRON *ODT* 4 MG TABLET SL PRN (13:04)
[2020-12-19] MEDS: hydrOXYzine PAMOATE 25 MG CAPSULE (FP) PO SCH ×3 (14:27→23:07)
[2020-12-19] MEDS: PRENATAL VITAMINS W/ FOLIC ACID TABLET (FP) PO SCH (14:27)
[2020-12-19] MEDS: NICOTINE 21 MG/24 HOURS TOPICAL PATCH TD SCH (14:28)
[2020-12-19 16:58] LABS: HEMATOCRIT 42.6 % (35.4-49); HEMOGLOBIN 14.2 GM/dL (11.7-16.9); MCH 33.5 pg (25.7-33.7); MCHC 33.4 g/dl (32.0-35.9); MEAN CELL VOLUME 100.5 fl (80-96); MEAN PLT VOLUME 10.4 fl (7.5-11.1); PLATELET COUNT 112 K/MM3 (134-434); RBC 4.24 M/mm3 (4.00-5.60); RDW 15.3 % (11.9-15.9)
[2020-12-19 17:05] LABS: ALBUMIN 3.8 g/dl (3.4-5.0)
[2020-12-19 17:07] LABS: BLOOD UREA NITROGEN 4.7 mg/dL (7-18); CALCIUM 8.4 mg/dL (8.5-10.1)
[2020-12-19 17:10] LABS: CREATININE 0.7 mg/dL (0.55-1.3)
[2020-12-19 17:11] LABS: BILIRUBIN,TOTAL 0.5 mg/dL (0.2-1); TOT PROT 7.5 g/dl (6.4-8.2)
[2020-12-19] MEDS: chlordiazePOXIDE HCL 25 MG CAPSULE PO SCH ×2 (17:56→23:06)
[2020-12-19] MEDS: THIAMINE HCL 100 MG TABLET (FP) PO SCH (23:08)
[2020-12-19] MEDS: MELATONIN 5 MG TABLETS PO SCH (23:09)
[2020-12-20] MEDS: METHOCARBAMOL 500 MG TABLET PO PRN (02:11)
[2020-12-20] MEDS: chlordiazePOXIDE HCL 25 MG CAPSULE PO SCH (06:20)
[2020-12-20] MEDS: hydrOXYzine PAMOATE 25 MG CAPSULE (FP) PO SCH (06:20)
[2020-12-20] MEDS: LORazepam 2 MG TABLET PO SCH ×3 (11:05→22:30)
[2020-12-20] MEDS: NICOTINE 21 MG/24 HOURS TOPICAL PATCH TD SCH (11:05)
[2020-12-20] MEDS: PRENATAL VITAMINS W/ FOLIC ACID TABLET (FP) PO SCH (11:08)
[2020-12-20] MEDS: THIAMINE HCL 100 MG TABLET (FP) PO SCH (21:41)
[2020-12-20] MEDS: MELATONIN 5 MG TABLETS PO SCH (21:42)
[2020-12-21] MEDS ORDERED: chlordiazePOXIDE HCL 25 MG CAPSULE PO SCH (05:00)
[2020-12-21] MEDS: LORazepam 2 MG TABLET PO SCH ×4 (06:49→23:13)
[2020-12-21] MEDS: NICOTINE 21 MG/24 HOURS TOPICAL PATCH TD SCH (10:37)
[2020-12-21 10:38] LABS: CALCIUM 9.4 mg/dL (8.5-10.1)
[2020-12-21] MEDS: PRENATAL VITAMINS W/ FOLIC ACID TABLET (FP) PO SCH (10:38)
[2020-12-21 10:39] LABS: ALBUMIN 3.3 g/dl (3.4-5.0)
[2020-12-21 10:42] LABS: CREATININE 0.9 mg/dL (0.55-1.3)
[2020-12-21 10:45] LABS: BILIRUBIN,TOTAL 0.6 mg/dL (0.2-1); TOT PROT 7.2 g/dl (6.4-8.2)
[2020-12-21] MEDS: METHOCARBAMOL 500 MG TABLET PO PRN ×2 (10:45→17:29)
[2020-12-21 10:47] LABS: BASO % 1.1 % (0-2.0); EOS % 0.6 % (0-4.5); HEMATOCRIT 46.8 % (35.4-49); LYMPH % 45.6 % (8-40); MCH 34.1 pg (25.7-33.7); MCHC 34.2 g/dl (32.0-35.9); MEAN CELL VOLUME 99.7 fl (80-96); MEAN PLT VOLUME 9.8 fl (7.5-11.1); MONO % 17.8 % (3.8-10.2); NEUT % 34.9 % (42.8-82.8); PLATELET COUNT 98 K/MM3 (134-434); RDW 15.3 % (11.9-15.9); WHITE BLOOD COUNT 4.1 K/mm3 (4.0-10.0)
[2020-12-21] MEDS: LORazepam 1 MG TABLET PO PRN (13:03)
[2020-12-21] MEDS ORDERED: MASKS NR ONE (17:25)
[2020-12-21] MEDS: THIAMINE HCL 100 MG TABLET (FP) PO SCH (23:13)
[2020-12-21] MEDS: hydrOXYzine PAMOATE 25 MG CAPSULE (FP) PO PRN (23:13)
[2020-12-21] MEDS: MELATONIN 5 MG TABLETS PO SCH (23:14)
[2020-12-22] MEDS ORDERED: chlordiazePOXIDE HCL 10 MG CAPSULE PO PRN
[2020-12-22] MEDS ORDERED: chlordiazePOXIDE HCL 10 MG CAPSULE PO SCH (05:00)
[2020-12-22 06:06] LABS: SARS-CoV-2 NAA Detected (Not Detected)
[2020-12-22] MEDS: LORazepam 1 MG TABLET PO SCH ×4 (06:40→23:13)
[2020-12-22] MEDS: METHOCARBAMOL 500 MG TABLET PO PRN ×2 (07:22→23:13)
[2020-12-22] MEDS: NICOTINE 21 MG/24 HOURS TOPICAL PATCH TD SCH (10:32)
[2020-12-22] MEDS: PRENATAL VITAMINS W/ FOLIC ACID TABLET (FP) PO SCH (10:32)
[2020-12-22] MEDS: LORazepam 1 MG TABLET PO PRN (19:54)
[2020-12-22] MEDS: MELATONIN 5 MG TABLETS PO SCH (23:12)
[2020-12-22] MEDS: THIAMINE HCL 100 MG TABLET (FP) PO SCH (23:12)
[2020-12-22] MEDS: hydrOXYzine PAMOATE 25 MG CAPSULE (FP) PO PRN (23:13)
[2020-12-23] MEDS ORDERED: LORazepam 0.5 MG TABLET PO PRN
[2020-12-23] MEDS ORDERED: chlordiazePOXIDE HCL 10 MG CAPSULE PO SCH (05:00)
[2020-12-23] MEDS: LORazepam 0.5 MG TABLET PO SCH ×4 (07:42→22:49)
[2020-12-23] MEDS: METHOCARBAMOL 500 MG TABLET PO PRN (07:43)
[2020-12-23] MEDS: NICOTINE 21 MG/24 HOURS TOPICAL PATCH TD SCH (10:35)
[2020-12-23] MEDS: PRENATAL VITAMINS W/ FOLIC ACID TABLET (FP) PO SCH (10:35)
[2020-12-23] MEDS: hydrOXYzine PAMOATE 25 MG CAPSULE (FP) PO PRN (17:37)
[2020-12-23] MEDS: MELATONIN 5 MG TABLETS PO SCH (22:49)
[2020-12-23] MEDS: THIAMINE HCL 100 MG TABLET (FP) PO SCH (22:49)
[2020-12-24] MEDS ORDERED: LORazepam 0.5 MG TABLET PO ONE (05:00)
[2020-12-24] MEDS ORDERED: chlordiazePOXIDE HCL 10 MG CAPSULE PO ONE (05:00)
[2020-12-24 09:23] VITALS: BP 148/78; PULSE 105; TEMP 97.3
[2020-12-24] MEDS: PRENATAL VITAMINS W/ FOLIC ACID TABLET (FP) PO SCH (11:23)
[2020-12-24] MEDS: NICOTINE 21 MG/24 HOURS TOPICAL PATCH TD SCH (11:23)
== END 2020-12-24 12:25 | disposition home or self-care (01) | DRG 775 ==
LOC: YASAS 11:26 → Y3N 12:54 → Y6N 12-20 14:25
PROVIDERS: ADMIT Allergy & Immunology; ATTEND Allergy & Immunology
PROC: HZ2ZZZZ Detoxification Services for Substance Abuse Treatment (ICD-10-PCS; principal; 2020-12-19)
DX: F10.230 Alcohol dependence with withdrawal, uncomplicated (principal); F12.20 Cannabis dependence, uncomplicated; F17.210 Nicotine dependence, cigarettes, uncomplicated; U07.1 COVID-19; D69.6 Thrombocytopenia, unspecified; I10 Essential (primary) hypertension; G40.909 Epilepsy, unspecified, not intractable, without status epilepticus; R73.03 Prediabetes; R74.8 Abnormal levels of other serum enzymes; R74.01 Elevation of levels of liver transaminase levels; Z98.890 Other specified postprocedural states
CPT/HCPCS: 36415; 71045-TC-FY; 80053; 85025; 85027; 86780; C9803; U0003; U0005

== ENCOUNTER 2021-10-18 17:30 | Inpatient (IN) | payer OTHER ==
[2021-10-18 19:09] VITALS: BMI 23.5
[2021-10-18] MEDS ORDERED: MAGNESIUM HYDROX 2400MG/30ML ORAL SUSPENSION 30 ML CUP PO PRN (23:30)
[2021-10-18] MEDS ORDERED: MAG HYDROX/AL HYDROX/SIMETH 30 ML UNIT-DOSE CUP PO PRN (23:30)
[2021-10-18] MEDS ORDERED: ONDANSETRON *ODT* 4 MG TABLET SL PRN (23:30)
[2021-10-18] MEDS ORDERED: MAGNESIUM CITRATE 300 ML BOTTLE PO PRN (23:30)
[2021-10-18] MEDS ORDERED: IBUPROFEN 400 MG TABLET (FP) PO PRN (23:30)
[2021-10-18] MEDS ORDERED: ACETAMINOPHEN 325 MG TABLET (FP) PO PRN ×2 (23:30)
[2021-10-18] MEDS ORDERED: NICOTINE 10 MG CARTRIDGE (INHALER) IH PRN (23:30)
[2021-10-18] MEDS ORDERED: MENTHOL/PHENOL 1 EACH UD MM PRN (23:30)
[2021-10-18] MEDS ORDERED: BISMUTH SUBSALICYLATE 524 MG/30 ML PO PRN (23:30)
[2021-10-19] MEDS: METHOCARBAMOL 500 MG TABLET PO PRN ×4 (00:56→18:29)
[2021-10-19] MEDS: LORazepam 1 MG TABLET PO PRN ×3 (00:56→20:48)
[2021-10-19] MEDS: LORazepam 2 MG TABLET PO SCH ×4 (05:13→22:39)
[2021-10-19] MEDS: NICOTINE 21 MG/24 HOURS TOPICAL PATCH TD SCH (10:10)
[2021-10-19] MEDS: PRENATAL VITAMINS W/ FOLIC ACID TABLET (FP) PO SCH (10:10)
[2021-10-19] MEDS: LOPERAMIDE HCL 2 MG CAPSULE PO PRN (11:35)
[2021-10-19] MEDS: THIAMINE HCL 100 MG TABLET (FP) PO SCH (22:39)
[2021-10-19] MEDS: MELATONIN 5 MG TABLETS PO SCH (22:43)
[2021-10-20] MEDS: LORazepam 1 MG TABLET PO SCH ×2 (05:35→10:18)
[2021-10-20] MEDS: METHOCARBAMOL 500 MG TABLET PO PRN ×3 (05:35→22:13)
[2021-10-20] MEDS: LOPERAMIDE HCL 2 MG CAPSULE PO PRN (06:08)
[2021-10-20] MEDS: NICOTINE 21 MG/24 HOURS TOPICAL PATCH TD SCH (10:17)
[2021-10-20] MEDS: PRENATAL VITAMINS W/ FOLIC ACID TABLET (FP) PO SCH (10:18)
[2021-10-20] MEDS ORDERED: LORazepam 1 MG TABLET PO PRN (11:41)
[2021-10-20 12:47] LABS: HEMATOCRIT 40.6 % (35.4-49); HEMOGLOBIN 13.9 GM/dL (11.7-16.9); MCH 34.2 pg (25.7-33.7); MCHC 34.2 g/dl (32.0-35.9); MEAN CELL VOLUME 100.2 fl (80-96); MEAN PLT VOLUME 10.5 fl (7.5-11.1); PLATELET COUNT 60 10^3/uL (134-434); RBC 4.05 M/mm3 (4.00-5.60); WHITE BLOOD COUNT 3.6 K/mm3 (4.0-10.0)
[2021-10-20 12:51] LABS: CALCIUM 9.2 mg/dL (8.5-10.1)
[2021-10-20 12:52] LABS: ALBUMIN 3.7 g/dl (3.4-5.0); BLOOD UREA NITROGEN 5.1 mg/dL (7-18)
[2021-10-20 12:55] LABS: CREATININE 0.7 mg/dL (0.55-1.3)
[2021-10-20 12:56] LABS: BILIRUBIN,TOTAL 1.5 mg/dL (0.2-1); TOT PROT 7.2 g/dl (6.4-8.2)
[2021-10-20 14:06] LABS: SARS-CoV-2 NAA Not Detected (Not Detected)
[2021-10-20] MEDS: LORazepam 0.5 MG TABLET PO PRN ×2 (15:27→22:12)
[2021-10-20] MEDS: MELATONIN 5 MG TABLETS PO SCH (22:13)
[2021-10-20] MEDS: THIAMINE HCL 100 MG TABLET (FP) PO SCH (22:13)
[2021-10-21] MEDS ORDERED: LORazepam 0.5 MG TABLET PO PRN
[2021-10-21] MEDS ORDERED: LORazepam 0.5 MG TABLET PO SCH (05:00)
[2021-10-21] MEDS ORDERED: LORazepam 1 MG TABLET PO ONE (05:00)
[2021-10-21] MEDS ORDERED: LORazepam 0.5 MG TABLET PO ONE (05:00)
[2021-10-21] MEDS: METHOCARBAMOL 500 MG TABLET PO PRN (05:13)
[2021-10-21 09:42] VITALS: BP 142/91; PULSE 109; TEMP 96.9
[2021-10-21] MEDS: NICOTINE 21 MG/24 HOURS TOPICAL PATCH TD SCH (10:31)
[2021-10-21] MEDS: PRENATAL VITAMINS W/ FOLIC ACID TABLET (FP) PO SCH (10:31)
[2021-10-22 01:20] LABS: BILIRUBIN,DIRECT 0.3 mg/dL (0.0-0.2)
[2021-10-22] MEDS ORDERED: LORazepam 0.5 MG TABLET PO ONE (05:00)
== END 2021-10-21 11:07 | disposition left against medical advice (07) | DRG 755 ==
LOC: YASAS 17:30 → Y3N 23:36
PROVIDERS: ADMIT Allergy & Immunology; ATTEND Allergy & Immunology
PROC: HZ2ZZZZ Detoxification Services for Substance Abuse Treatment (ICD-10-PCS; principal; 2021-10-18)
DX: F40.230 Fear of blood (principal); F12.20 Cannabis dependence, uncomplicated; F17.210 Nicotine dependence, cigarettes, uncomplicated; F31.9 Bipolar disorder, unspecified; F10.24 Alcohol dependence with alcohol-induced mood disorder; F41.9 Anxiety disorder, unspecified; I10 Essential (primary) hypertension; R94.5 Abnormal results of liver function studies; R73.03 Prediabetes; Z86.11 Personal history of tuberculosis; Z86.69 Personal history of other diseases of the nervous system and sense organs
CPT/HCPCS: 36415; 80053; 80076; 85027; 86780; 87811; 93005; 93010; C9803; Q0162; U0003; U0005

== ENCOUNTER 2022-05-21 10:51 | Inpatient (IN) | payer OTHER ==
[2022-05-21 12:48] VITALS: BMI 24.5
[2022-05-21] MEDS ORDERED: NALOXONE HCL (KLOXXADO) 8 MG SPRAY NS PRN (13:14)
[2022-05-21] MEDS ORDERED: MAG HYDROX/AL HYDROX/SIMETH 30 ML UNIT-DOSE CUP PO PRN (13:14)
[2022-05-21] MEDS ORDERED: DICYCLOMINE HCL 10 MG CAPSULE PO PRN (13:14)
[2022-05-21] MEDS ORDERED: IBUPROFEN 400 MG TABLET (FP) PO PRN (13:14)
[2022-05-21] MEDS ORDERED: MAGNESIUM CITRATE 300 ML BOTTLE PO PRN (13:14)
[2022-05-21] MEDS ORDERED: BENZOCAINE/MENTHOL (CHLORASEPTIC ) LOZENGE MM PRN (13:14)
[2022-05-21] MEDS ORDERED: BISMUTH SUBSALICYLATE 524 MG/30 ML PO PRN (13:14)
[2022-05-21] MEDS ORDERED: LORazepam 2 MG TABLET PO ONE (13:14)
[2022-05-21] MEDS ORDERED: ONDANSETRON *ODT* 4 MG TABLET SL PRN (13:14)
[2022-05-21] MEDS ORDERED: MAGNESIUM HYDROX 2400MG/30ML ORAL SUSPENSION 30 ML CUP PO PRN (13:14)
[2022-05-21] MEDS ORDERED: ACETAMINOPHEN 325 MG TABLET (FP) PO PRN ×2 (13:14)
[2022-05-21] MEDS ORDERED: LORazepam 2 MG TABLET ONE (13:42)
[2022-05-21] MEDS: hydrOXYzine PAMOATE 25 MG CAPSULE (FP) PO SCH ×3 (14:39→22:19)
[2022-05-21] MEDS: PRENATAL VITAMINS W/ FOLIC ACID TABLET (FP) PO SCH (14:40)
[2022-05-21] MEDS: LORazepam 2 MG TABLET PO SCH ×2 (17:51→22:19)
[2022-05-21] MEDS: LOPERAMIDE HCL 2 MG CAPSULE PO PRN (21:08)
[2022-05-21] MEDS: MELATONIN 5 MG TABLETS PO SCH (22:19)
[2022-05-21] MEDS: THIAMINE HCL 100 MG TABLET (FP) PO SCH (22:19)
[2022-05-21] MEDS: METHOCARBAMOL 500 MG TABLET PO PRN (22:20)
[2022-05-22] MEDS: LORazepam 2 MG TABLET PO SCH ×4 (05:13→22:31)
[2022-05-22] MEDS: hydrOXYzine PAMOATE 25 MG CAPSULE (FP) PO SCH ×5 (05:14→22:29)
[2022-05-22] MEDS: METHOCARBAMOL 500 MG TABLET PO PRN (05:15)
[2022-05-22] MEDS: LORazepam 1 MG TABLET PO PRN ×3 (09:47→19:26)
[2022-05-22] MEDS: NICOTINE 14 MG/24 HOURS TOPICAL PATCH TD SCH (10:19)
[2022-05-22] MEDS: PRENATAL VITAMINS W/ FOLIC ACID TABLET (FP) PO SCH (10:19)
[2022-05-22] MEDS: IBUPROFEN 600 MG TABLET (FP) PO PRN ×2 (10:22→17:50)
[2022-05-22 11:08] LABS: HEMATOCRIT 41.9 % (35.4-49); HEMOGLOBIN 13.8 GM/dL (11.7-16.9); MCH 33.2 pg (25.7-33.7); MCHC 32.8 g/dl (32.0-35.9); MEAN PLT VOLUME 8.3 fl (7.5-11.1); PLATELET COUNT 217 10^3/uL (134-434); RBC 4.15 M/mm3 (4.00-5.60); RDW 14.8 % (11.9-15.9); WHITE BLOOD COUNT 5.2 K/mm3 (4.0-10.0)
[2022-05-22 12:33] LABS: CALCIUM 8.8 mg/dL (8.5-10.1)
[2022-05-22 12:34] LABS: ALBUMIN 3.6 g/dl (3.4-5.0); BLOOD UREA NITROGEN 5.1 mg/dL (7-18)
[2022-05-22 12:37] LABS: CREATININE 0.7 mg/dL (0.55-1.3)
[2022-05-22 12:38] LABS: BILIRUBIN,TOTAL 1.1 mg/dL (0.2-1)
[2022-05-22 12:39] LABS: TOT PROT 6.5 g/dl (6.4-8.2)
[2022-05-22] MEDS: NICOTINE 10 MG CARTRIDGE (INHALER) IH PRN (14:52)
[2022-05-22] MEDS: LOPERAMIDE HCL 2 MG CAPSULE PO PRN (19:26)
[2022-05-22] MEDS: MELATONIN 5 MG TABLETS PO SCH (22:29)
[2022-05-22] MEDS: THIAMINE HCL 100 MG TABLET (FP) PO SCH (22:29)
[2022-05-23] MEDS: LORazepam 1 MG TABLET PO SCH ×4 (05:39→22:28)
[2022-05-23] MEDS: hydrOXYzine PAMOATE 25 MG CAPSULE (FP) PO SCH ×5 (05:39→22:28)
[2022-05-23] MEDS: NICOTINE 14 MG/24 HOURS TOPICAL PATCH TD SCH (10:11)
[2022-05-23] MEDS: PRENATAL VITAMINS W/ FOLIC ACID TABLET (FP) PO SCH (10:12)
[2022-05-23] MEDS: METHOCARBAMOL 500 MG TABLET PO PRN ×2 (10:13→22:28)
[2022-05-23] MEDS: LORazepam 1 MG TABLET PO PRN (13:18)
[2022-05-23] MEDS: NICOTINE 10 MG CARTRIDGE (INHALER) IH PRN (14:19)
[2022-05-23] MEDS: MELATONIN 5 MG TABLETS PO SCH (22:27)
[2022-05-23] MEDS: THIAMINE HCL 100 MG TABLET (FP) PO SCH (22:28)
[2022-05-24] MEDS ORDERED: LORazepam 0.5 MG TABLET PO PRN
[2022-05-24] MEDS: LORazepam 0.5 MG TABLET PO SCH ×4 (05:32→22:17)
[2022-05-24] MEDS: hydrOXYzine PAMOATE 25 MG CAPSULE (FP) PO SCH ×5 (05:32→22:17)
[2022-05-24] MEDS: METHOCARBAMOL 500 MG TABLET PO PRN ×2 (05:35→22:17)
[2022-05-24] MEDS: NICOTINE 14 MG/24 HOURS TOPICAL PATCH TD SCH (10:07)
[2022-05-24] MEDS: PRENATAL VITAMINS W/ FOLIC ACID TABLET (FP) PO SCH (10:07)
[2022-05-24] MEDS: NICOTINE 10 MG CARTRIDGE (INHALER) IH PRN (10:09)
[2022-05-24] MEDS: MELATONIN 5 MG TABLETS PO SCH (22:17)
[2022-05-24] MEDS: THIAMINE HCL 100 MG TABLET (FP) PO SCH (22:17)
[2022-05-25] MEDS ORDERED: LORazepam 0.5 MG TABLET PO ONE (05:00)
[2022-05-25] MEDS: hydrOXYzine PAMOATE 25 MG CAPSULE (FP) PO SCH ×3 (05:17→13:28)
[2022-05-25] MEDS: METHOCARBAMOL 500 MG TABLET PO PRN (05:18)
[2022-05-25] MEDS: NICOTINE 14 MG/24 HOURS TOPICAL PATCH TD SCH (09:56)
[2022-05-25] MEDS: PRENATAL VITAMINS W/ FOLIC ACID TABLET (FP) PO SCH (09:56)
[2022-05-25] MEDS: NICOTINE 10 MG CARTRIDGE (INHALER) IH PRN (10:46)
[2022-05-25 13:20] VITALS: BP 138/90; PULSE 89; RESP 18; TEMP 97.1
== END 2022-05-25 13:40 | disposition home or self-care (01) | DRG 775 ==
LOC: YASAS 10:51 → Y3N 13:54
PROVIDERS: ADMIT Allergy & Immunology; ATTEND Surgery
PROC: HZ2ZZZZ Detoxification Services for Substance Abuse Treatment (ICD-10-PCS; principal; 2022-05-21)
DX: F10.230 Alcohol dependence with withdrawal, uncomplicated (principal); F12.20 Cannabis dependence, uncomplicated; F17.210 Nicotine dependence, cigarettes, uncomplicated; F19.282 Other psychoactive substance dependence with psychoactive substance-induced sleep disorder; F41.9 Anxiety disorder, unspecified; I10 Essential (primary) hypertension; R73.03 Prediabetes; Z86.19 Personal history of other infectious and parasitic diseases
CPT/HCPCS: 36415; 80053; 85027; 86780; C9803-CS; U0003; U0005